=== PATIENT | female | born 1940 | race Caucasian/White ===

== ENCOUNTER 2016-12-24 15:04 | Emergency (ER) | payer MEDICARE ==
--- NOTE | 2016-12-24 17:15 | CT ---
EXAM: NONCONTRAST HEAD CT 12/24/16 COMPARISON: 07/26/12 HISTORY: Status post fall. Patient landed on face. Upper lip abrasion and right sided facial pain. TECHNIQUE: Noncontrast head CT is performed from skull base to skull vertex. FINDINGS: No parenchymal hemorrhage. No extra-axial hematoma. No midline shift. Basilar cisterns are patent. A ge appropriate brain volume. Cortical jacob-white matter differentiation is preserved. Ventricles and sulci are patent and symmetric. Calvarium is intact. Complete opacification of the visualized maxillary sinuses due to inspissated secretions versus a fu ngal infection. Adequate aeration of the remaining visualized paranasal sinuses and mastoid air cell s. IMPRESSION: 1. No intracranial posttraumatic sequela. 2. Bilateral maxillary sinus disease as above. POS: [facility]
--- NOTE | 2016-12-24 17:50 | CT ---
EXAM: NONCONTRAST MAXILLOFACIAL CT 12/24/16 HISTORY: Fall. Facial abrasions in the upper lip and right side of the face. Posttraumatic pain. COMPARISON: None. TECHNIQUE: The visualized brain parenchyma is unremarkable. there is adequate aeration of the frontal sinuses a nd ethmoid air cells, as well as the sphenoid sinuses. There is opacification of the left and right maxillary sinuses with some hyperdense material suggesting inspissated mucus versus fungal disease . There is mild hypertrophy of the osseous margins of the left and right maxillary sinus suggesting a chronic process. On the coronal reformatted images, there is opacification of bilateral osteomeata l complexes. Septum is intact and midline. The osseous margins of the orbits are maintained. There i s symmetric attenuation of the optic nerve and ocular rectus muscles. [place] right ocular lens and i mplanted left ocular lens appear to be appropriately positioned. The visualized aerodigestive tract is patent. No mucosal abnormality. Midline fatty raphae of the to ngue is preserved. There is no prevertebral soft tissue swelling. Maxilla and mandible are intact. Pterygoid plates are intact. No significant right facial or periorbital soft tissue swelling or erythema. IMPRESSION: 1. No posttraumatic sequela in the face. 2. Sinus disease as above. POS: [facility]
== END 2016-12-24 17:05 | disposition home or self-care (01) ==
LOC: SCSER 15:04
DX: S00.531A Contusion of lip, initial encounter (principal); E03.9 Hypothyroidism, unspecified; K21.9 Gastro-esophageal reflux disease without esophagitis; E78.5 Hyperlipidemia, unspecified; M19.90 Unspecified osteoarthritis, unspecified site; E11.9 Type 2 diabetes mellitus without complications; I10 Essential (primary) hypertension; Z85.038 Personal history of other malignant neoplasm of large intestine; Z79.4 Long term (current) use of insulin; Z79.899 Other long term (current) drug therapy; W01.0XXA Fall on same level from slipping, tripping and stumbling without subsequent striking against object, initial encounter
CPT/HCPCS: 70450; 70486

== ENCOUNTER 2017-01-19 09:14 | Observation (INO) | payer MEDICARE ==
[2017-01-19] MEDS ORDERED: Ondansetron HCl/PF 4 MG/2 ML Vial ONE ×2 (09:47→12:06)
[2017-01-19 10:01] LABS: #Eosinphils 0.1 thou/uL (0.0-0.7); #Lymphocytes 0.6 thou/uL (1.20-3.40); #Monocytes 0.5 thou/uL (0.11-0.59); #Neutrophils 7.9 thou/uL (1.40-6.50); %Basophils 0.2 % (0.0-1.0); %Eosinophils 1.2 % (0.0-10.0); %Lymphocytes 6.4 % (21.0-51.0); %Monocytes 5.8 % (0.0-10.0); Hematocrit 43.4 % (36.0-47.0); Mean Platelet Volume 7.9 fL (7.4-10.4); White Blood Cell (WBC) Count 9.1 thou/uL (4.8-10.8)
[2017-01-19 10:16] LABS: ALT (SGPT) 38 U/L (8-55); AST (SGOT) 41 U/L (5-34); Alkaline Phosphatase 104 U/L (40-150); Anion Gap 14 mmol/L (10-20); BUN (Urea Nitrogen) 23 mg/dL (9.8-20.1); Bilirubin, Total 0.8 mg/dL (0.2-1.2); Calc. Creatinine Clearance 0 mL/min (70-130); Calcium 9.4 mg/dL (7.8-10.44); Carbon Dioxide 20 mmol/L (23-31); Chloride 102 mmol/L (98-107); Estimated GFR-MDRD 53; Globulin 3.5 g/dL (2.4-3.5); Lipase 46 U/L (8-78); Protein, Total 7.5 g/dL (6.0-8.3)
[2017-01-19 10:36] LABS: Lactic Acid - Sepsis 1.9 mmol/L (0.5-2.2)
[2017-01-19 10:47] LABS: Troponin I Less than 0.010 ng/mL (< 0.028)
--- NOTE | 2017-01-19 11:17 | CT ---
CT ABDOMEN AND PELVIS WITH CONTRAST: Technique: Multiple axial tomograms were obtained through the abdomen and pelvis with IV enhancement . History: Nausea, vomiting. Comparison: 06-30-14 FINDINGS: Lung bases are clear. Liver, spleen, pancreas unremarkable. Post cholecystectomy change. Adrenal glands unremarkable. Kidneys show no evidence of hydronephrosis. Kidneys show equal function. No renal calculus or obstru ction. Urinary bladder unremarkable. Patient is post right colectomy. Small anterior abdominal wall hernia is unchanged in appearance fro m the prior exam of 06-30-14. This small herniation contains mesenteric fat. Small bowel loops are nor mal caliber with no evidence of obstruction. Visualized colon is otherwise unremarkable. No adenopat hy. Patient appears to be post hysterectomy. IMPRESSION: No evidence of acute process. POS: [facility]
[2017-01-19] MEDS ORDERED: Acetaminophen 500 MG TAB ONE (11:32)
[2017-01-19 11:44] LABS: Bilirubin Negative (Negative); Blood, Urine Trace (Negative); Glucose, Urine (Dipstick) 250 mg/dL (Negative); Ketone, Urine Trace mg/dL (Negative); Nitrite Negative (Negative); Protein, Urine (Dipstick) Negative (Neg-Trace); Urobilinogen 0.2 mg/dL (0.2-1.0)
[2017-01-19 11:45] LABS: Bacteria/HPF 1+ HPF (None Seen); Hyaline Casts/LPF 0-3 HYALINE CAST LPF (0-3 Hyaline); Squamous Epithelial 0-3 HPF (0-3)
[2017-01-19 11:57] LABS: RBC/HPF 0-3 HPF (0-3)
[2017-01-19] MEDS ORDERED: cefTRIAXone\\ROCEPHIN 1 GM VIAL ONE (12:59)
[2017-01-19] MEDS ORDERED: cefTRIAXone\\ROCEPHIN 1 GM, Admixture Fee 1 EACH in Sodium Chloride 0.9% 100 ML IVPB SCH (13:15)
[2017-01-19] MEDS ORDERED: ISOVUE-370 76%-LOCM 1 ML ONE (13:25)
[2017-01-19] MEDS ORDERED: Ondansetron ODT 4 MG TAB PO PRN (13:57)
[2017-01-19] MEDS ORDERED: Ondansetron HCl/PF 4 MG/2 ML Vial IVP PRN (13:57)
[2017-01-19] MEDS ORDERED: Acetaminophen 325 MG TAB PO PRN (13:58)
[2017-01-19] MEDS ORDERED: HYDROcodone/Acetaminophen 5/325 mg Tablet PO PRN ×2 (13:58)
[2017-01-19] MEDS ORDERED: Sodium Chloride 0.9% 1,000 ML IV SCH (14:00)
[2017-01-19] MEDS ORDERED: Dextrose 50% Abboject 50 ML SYRINGE SLOW IVP PRN (14:20)
[2017-01-19] MEDS ORDERED: Dextrose 5% in Water 1,000 ML IV PRN (14:20)
[2017-01-19] MEDS ORDERED: HumaLOG 300 UNITS/3 ML VIAL SC PRN (14:20)
[2017-01-19 14:24] VITALS: BMI 31.1
[2017-01-19] MEDS: Sodium Chloride 0.9% 1,000 ML IV SCH (15:19)
[2017-01-19] MEDS: Ondansetron ODT 4 MG TAB PO PRN ×2 (16:04→23:41)
--- NOTE | 2017-01-19 16:13 | HP ---
REASON FOR ADMISSION: Intractable nausea, vomiting, abdominal pain. HISTORY OF PRESENTING ILLNESS: The patient gives history of feeling dizzy with loss of energy from yesterday. She also felt very nauseated and had loss of appetite from yesterday. She really did not want to throw up because she has a tendency to choke. She managed to keep it down until early this morning. Finally, this continued and she made it to emergency room. Here in the ER, she had a large amount of vomitus, no blood or mucus in it. The patient states she has had loose stools 2 times a day from last 3 days as well. The abdominal pain is in the suprapubic area. No radiation of this pain. The pain is 3-4/10 in intensity. She has gotten morphine and Bentyl in the ER which has given her some relief now. PAST MEDICAL AND SURGICAL HISTORY: History of diabetes mellitus type 2, hypertension, dyslipidemia, history of rheumatoid arthritis, hypothyroidism, GERD, history of TIA in 2012, colonoscopy with right hemicolectomy, cholecystectomy, and hysterectomy. CURRENT MEDICATIONS: The patient is on linagliptin with metformin 2.5/500 mg p.o. twice daily, Coreg 12.5 mg p.o. twice daily, folic acid 1 mg p.o. daily, simvastatin 20 mg p.o. daily, hydrochlorothiazide 12.5 mg p.o. daily, Levemir 50 units subcutaneous twice daily, methotrexate 20 mg weekly, levothyroxine 25 mcg p.o. daily, glipizide extended release 10 mg p.o. twice daily, and losartan 50 mg p.o. daily. ALLERGIES: Allergic to PENICILLIN. PERSONAL HISTORY: Does not abuse alcohol or drugs. No history of smoking. Lives with her . FAMILY HISTORY: Father had unknown cancer. Mother has had history of hypertension. REVIEW OF SYSTEMS: The following complete review of systems was negative, unless otherwise mentioned in the HPI or below: Constitutional: Weight loss or gain, ability to conduct usual activities. Skin: Rash, itching. Eyes: Double vision, pain. ENT/Mouth: Nose bleeding, neck stiffness, pain, tenderness. Cardiovascular: Palpitations, dyspnea on exertion, orthopnea. Respiratory: Shortness of breath, wheezing, cough, hemoptysis, fever or night sweats. Gastrointestinal: Poor appetite, abdominal pain, heartburn, nausea, vomiting, constipation, or diarrhea. Genitourinary: Urgency, frequency, dysuria, nocturia. Musculoskeletal: Pain, swelling. Neurologic/Psychiatric: Anxiety, depression. Allergy/Immunologic: Skin rash, bleeding tendency. PHYSICAL EXAMINATION: GENERAL: The patient is a 76-year-old female who is currently lethargic, but not in any acute distress. VITAL SIGNS: Blood pressure 142/82, pulse 110 per minute, respiratory rate 24 per minute, temperature 98.1 degrees Fahrenheit, and saturating 100% on room air. NECK: Supple, no elevated JVD. EYES: Extraocular muscles intact. Pupils reacting to light. ORAL CAVITY: Mucous membranes are dry. No exudates or congestion. CARDIOVASCULAR SYSTEM: S1, S2 heard. Regular rhythm. RESPIRATORY SYSTEM: Air entry 1+ bilateral. No rales or rhonchi. ABDOMEN: Soft. There is mild tenderness in the suprapubic area. No rigidity or guarding. Bowel sounds are heard. EXTREMITIES: No peripheral edema or calf tenderness. VASCULAR SYSTEM: Peripheral pulses 1+ bilateral. No ischemic ulcerations or gangrene. CENTRAL NERVOUS SYSTEM: No gross focal deficits seen. Patient is alert, awake , and oriented x3. PSYCHIATRIC SYSTEM: The patient's mood is a bit depressed, otherwise, no hallucinations or delusions. LABORATORY DATA AND X-RAY FINDINGS: White count of 9, hemoglobin and hematocrit 14 and 43, platelet count of 172 with 86% neutrophils, MCV is 90. Sodium 131, serum bicarbonate 20, BUN 23, and creatinine 1.0. Serum glucose 324 , CK level is 22, albumin is 4.0. Her cardiac enzymes are within normal limits. Lipase is 46. UA shows small leukocyte esterase with 1+ bacteria and 4 -6 WBCs in the urine. Abdomen and pelvic CAT scan done shows no acute process. EKG, sinus tachycardia at 108 beats per minute. CLINICAL IMPRESSION AND PLAN: The patient will be under observation in medical floor for intractable nausea and vomiting with suprapubic pain, likely urinary tract infection. Blood and urine cultures will be obtained in the ER. The patient does not appear to be septic at present. She will be placed on ciprofloxacin 400 mg q.12 hourly along with normal saline at 50 mL per hour. The patient will be slowly weaned into solid food. If patient is tolerating solid food, she can be safely discharged in the morning. She needs a close followup with her primary care physician in 1 week upon discharge. We will also obtain orthostatic blood pressures and stool cultures as well including Clostridium difficile. We will continue most of her home medications as before including glipizide, Cozaar, Synthroid, Levemir, folic acid, Coreg, atorvastatin , and aspirin as before. [facility]
[2017-01-19] MEDS: HumaLOG 300 UNITS/3 ML VIAL SC PRN (17:13)
[2017-01-19] MEDS: Acetaminophen 325 MG TAB PO PRN ×2 (17:17→23:41)
[2017-01-19] MEDS ORDERED: Atorvastatin Calcium 10 MG TAB PO SCH (21:00)
[2017-01-19] MEDS: Carvedilol 6.25 MG TAB PO SCH (21:18)
[2017-01-19] MEDS: Famotidine 20 MG TAB PO SCH (21:18)
[2017-01-19] MEDS: Insulin Detemir 100 UNITS/ML 55 UNITS in Pre-Filled Syringe 1 EACH SC SCH (21:19)
[2017-01-19] MEDS ORDERED: Temazepam 15 MG CAP PO PRN (23:27)
[2017-01-20] MEDS ORDERED: Loperamide HCl 2 MG CAP PO SCH (01:30)
[2017-01-20 04:41] LABS: #Lymphocytes 0.6 thou/uL (1.20-3.40); #Monocytes 0.2 thou/uL (0.11-0.59); #Neutrophils 3.3 thou/uL (1.40-6.50); %Basophils 0.2 % (0.0-1.0); %Eosinophils 0.5 % (0.0-10.0); %Lymphocytes 14.6 % (21.0-51.0); %Monocytes 5.7 % (0.0-10.0); Hematocrit 36.7 % (36.0-47.0); Mean Platelet Volume 7.5 fL (7.4-10.4); Red Blood Cell (RBC) Count 4.11 mill/uL (4.20-5.40); White Blood Cell (WBC) Count 4.1 thou/uL (4.8-10.8)
[2017-01-20 05:03] LABS: Anion Gap 12 mmol/L (10-20); BUN (Urea Nitrogen) 18 mg/dL (9.8-20.1); Calc. Creatinine Clearance 65 mL/min (70-130); Calcium 8.2 mg/dL (7.8-10.44); Carbon Dioxide 16 mmol/L (23-31); Chloride 107 mmol/L (98-107); Estimated GFR-MDRD 62
[2017-01-20] MEDS ORDERED: Levothyroxine Sodium 25 MCG TAB PO SCH ×2 (06:00→09:00)
[2017-01-20] MEDS: HumaLOG 300 UNITS/3 ML VIAL SC PRN (06:04)
[2017-01-20] MEDS: Carvedilol 6.25 MG TAB PO SCH (08:50)
[2017-01-20] MEDS: Famotidine 20 MG TAB PO SCH (08:51)
[2017-01-20] MEDS: Insulin Detemir 100 UNITS/ML 55 UNITS in Pre-Filled Syringe 1 EACH SC SCH (08:52)
[2017-01-20] MEDS ORDERED: Folic Acid 1 MG TAB PO SCH (09:00)
[2017-01-20] MEDS ORDERED: Enoxaparin Sodium 40 MG/0.4 ML SYRINGE SC SCH (09:00)
[2017-01-20] MEDS ORDERED: Aspirin 81 mg Enteric Coated Tablet PO SCH (09:00)
[2017-01-20] MEDS ORDERED: Non-Formulary Item 1 EACH (Losartan Potassium [Cozaar] 50 MG) PO SCH (09:00)
[2017-01-20] MEDS ORDERED: Losartan Potassium 25 MG TAB PO SCH (09:00)
--- NOTE | 2017-01-20 11:05 | PDOC.PN ---
- Subjective Encounter Start Date: 01/20/17 Encounter Start Time: 11:04 - Objective Resuscitation Status: Resuscitation Status FULL:Full Resuscitation MAR Reviewed: Yes Vital Signs & Weight: Vital Signs (12 hours) Temp Pulse Resp BP BP BP BP 01/20/17 08:50 126/60 01/20/17 08:00 99.3 F 88 20 01/20/17 07:50 99.3 F 88 20 120/55 L 122/57 L 01/20/17 03:50 99 F 85 18 159/69 H 01/19/17 23:17 98.1 F 95 18 138/64 BP Pulse Ox 01/20/17 08:50 01/20/17 08:00 01/20/17 07:50 126/60 95 01/20/17 03:50 01/19/17 23:17 96 Weight Weight 170 lb 1 oz I&O: 01/19/17 01/20/17 01/21/17 06:59 06:59 06:59 Intake Total 1850 Output Total 600 Balance 1250 Result Diagrams: 01/20/17 04:25 01/20/17 04:25 Additional Labs: Accuchecks 01/20/17 01/19/17 01/19/17 06:04 20:59 16:36 POC Glucose 260 H 227 H 353 H Phys Exam - Physical Examination HEENT: PERRLA Respiratory: no wheezing, no rales, no rhonchi, clear to auscultation bilateral Cardiovascular: RRR, no significant murmur Gastrointestinal: soft, positive bowel sounds Musculoskeletal: no edema Dx/Plan (1) Gastroenteritis, infectious, presumed Code(s): A09 - INFECTIOUS GASTROENTERITIS AND COLITIS, UNSPECIFIED Status: Acute (2) UTI (urinary tract infection) Status: Acute (3) Diabetes mellitus type 2 in obese Code(s): E11.69 - TYPE 2 DIABETES MELLITUS WITH OTHER SPECIFIED COMPLICATION; E66.9 - OBESITY, UNSPECIFIED Status: Acute (4) Hypertension Code(s): I10 - ESSENTIAL (PRIMARY) HYPERTENSION Status: Acute - Plan * Gastroenteritis- likely viral- resolving * UTI- improving with Cipro, and patient is PCN allergic- will discharge home on Cipro. Patient is to follow-up with Dr. Nunes in 1 week for the urine culture results. * DM- blood glucose is stable * HTN- blood pressure is stable.
[2017-01-20 11:17] VITALS: TEMP 99
[2017-01-20] MEDS: Sodium Chloride 0.9% 1,000 ML IV SCH (11:38)
--- NOTE | 2017-01-20 13:32 | DIS ---
DATE OF ADMISSION: 01/19/2017 DATE OF DISCHARGE: 01/20/2017 PRIMARY CARE PHYSICIAN: Dr. Nunes DISCHARGE DISPOSITION: Home. PRIMARY DISCHARGE DIAGNOSES: 1. Gastroenteritis, presumed infectious. 2. Urinary tract infection due to Escherichia coli. 3. Diabetes mellitus, type 2. 4. Hypertension. 5. Dyslipidemia. 6. Rheumatoid arthritis. 7. Gastroesophageal reflux disease. DISCHARGE MEDICATIONS: Include ciprofloxacin 250 mg 1 p.o. twice a day for 5 days, carvedilol 6.25 mg twice daily, aspirin 81 mg daily, folic acid 1 mg daily, hydrochlorothiazide 12.5 mg daily, Levem ir 55 units twice a day, levothyroxine 25 mcg daily, Jentadueto and that is linagliptin with metfor min combination and that is 2.5/500 one tablet twice daily, Cozaar 100 mg daily, methotrexate 15 mg once a week, omeprazole 40 mg daily, simvastatin 20 mg at bedtime and glipizide extended release 10 mg twice a day. PROCEDURES DONE DURING ADMISSION: The patient had a CT scan of the abdomen and pelvis showing no ev idence of any acute process. CODE STATUS: FULL CODE. ALLERGIES: PENICILLIN. HOSPITAL COURSE: Ms. Rosado is a pleasant 76-year-old female who presented to the emergency room wi th complaints of nausea, vomiting, diarrhea, and abdominal pain. This had been going on at least 3 days prior to admission. In the ER, she had a CT scan of the abdomen, which did not show any acute abnormalities and it was also discovered that she had a urinary tract infection. After being in the hospital overnight on IV fluids and IV Cipro, she improved dramatically and was at her baseline. I t is suspected that this is likely a viral gastroenteritis and she likely developed urinary tract in fection secondary to this. Her urine culture results are growing E. coli at 100,000 colony forming units; however, the sensitivity results are pending. Since she is improving with fluids and Cipro and afebrile, she will be discharged and can follow up with the sensitivities with Dr. Nunes in the outpatient setting in 1 week.
[2017-01-20 15:04] VITALS: BP 130/60
[2017-01-20] MEDS ORDERED: Cipro 250 MG TAB PO SCH (20:00)
== END 2017-01-20 15:43 | disposition home or self-care (01) ==
LOC: ERS 09:14 → 2SW 14:13
PROVIDERS: ADMIT Internal Medicine; ATTEND Internal Medicine
DX: K52.9 Noninfective gastroenteritis and colitis, unspecified (principal); N39.0 Urinary tract infection, site not specified; B96.20 Unspecified Escherichia coli [E. coli] as the cause of diseases classified elsewhere; I10 Essential (primary) hypertension; E78.5 Hyperlipidemia, unspecified; M06.9 Rheumatoid arthritis, unspecified; K21.9 Gastro-esophageal reflux disease without esophagitis; E03.9 Hypothyroidism, unspecified; E11.9 Type 2 diabetes mellitus without complications; Z79.4 Long term (current) use of insulin; Z79.82 Long term (current) use of aspirin; Z79.899 Other long term (current) drug therapy; Z88.0 Allergy status to penicillin; Z90.49 Acquired absence of other specified parts of digestive tract; Z90.710 Acquired absence of both cervix and uterus; Z86.73 Personal history of transient ischemic attack (TIA), and cerebral infarction without residual deficits; Z80.9 Family history of malignant neoplasm, unspecified; Z82.49 Family history of ischemic heart disease and other diseases of the circulatory system
CPT/HCPCS: 74177; 80048; 80053; 82550; 82553; 82962 ×2; 83605; 83690; 83880; 84484; 85025 ×2; 87015; 87040; 87045; 87046; 87077; 87086; 87186; 87324; 87449 ×2; 87899 ×2; 93005; 96361 ×3; 96367; 96372; 96374; 96375; 96376 ×2; 97139; 99285; G0378; 36415; 36416; 81003; 81015; 90471; 90732; A4216; G0009; J0696; J0744; J1650; J1815; J2405; J7050; Q0162

== ENCOUNTER 2017-02-11 00:51 | Emergency (ER) | payer MEDICARE | END 2017-02-11 01:15 | disposition home or self-care (01) | LOC: SCSER 00:51 | DX: L03.311 Cellulitis of abdominal wall (principal); E03.9 Hypothyroidism, unspecified; K21.9 Gastro-esophageal reflux disease without esophagitis; E78.5 Hyperlipidemia, unspecified; I10 Essential (primary) hypertension; Z79.4 Long term (current) use of insulin; Z79.899 Other long term (current) drug therapy | CPT/HCPCS: 99283 ==

== ENCOUNTER 2017-08-03 08:24 | Emergency (ER) | payer MEDICARE ==
[2017-08-03 09:00] LABS: #Eosinphils 0.1 thou/uL (0.0-0.7); #Lymphocytes 2.2 thou/uL (1.20-3.40); #Monocytes 0.7 thou/uL (0.11-0.59); #Neutrophils 6.6 thou/uL (1.40-6.50); %Basophils 0.2 % (0.0-1.0); %Eosinophils 1.2 % (0.0-10.0); %Lymphocytes 22.8 % (21.0-51.0); %Monocytes 7.2 % (0.0-10.0); %Neutrophils 68.5 % (42.0-75.0); Hemoglobin 12.1 g/dL (12.0-16.0); Mean Corpuscular HGB CONC 34.7 g/dL (32.0-36.0); Mean Corpuscular Hemoglobin 29.9 pg (27.0-31.0); Mean Corpuscular Volume 86.2 fl (81.0-99.0); Mean Platelet Volume 7.1 fL (7.4-10.4); Platelet Count 179 thou/uL (130-400); RBC Distribution Width 13.6 % (11.5-14.5); Red Blood Cell (RBC) Count 4.04 mill/uL (4.20-5.40); White Blood Cell (WBC) Count 9.6 thou/uL (4.8-10.8)
--- NOTE | 2017-08-03 09:15 | RAD ---
CHEST ONE VIEW: History: Chest pain. Comparison: 03-19-16 FINDINGS: Cardiac silhouette is magnified by projection. Pulmonary vasculature is slightly engorged with mild b ilateral perihilar infiltrates. Mediastinum is midline. No lobar consolidation or evidence of pneumot horax. monitor and storage bin tender leads overlie the chest. IMPRESSION: Pulmonary vascular congestion. POS: [facility]
[2017-08-03 09:26] LABS: ALT (SGPT) 24 U/L (8-55); AST (SGOT) 28 U/L (5-34); Albumin 3.5 g/dL (3.4-4.8); Alkaline Phosphatase 94 U/L (40-150); Anion Gap 12 mmol/L (10-20); BUN (Urea Nitrogen) 17 mg/dL (9.8-20.1); Bilirubin, Total 0.5 mg/dL (0.2-1.2); CK (CPK) 24 U/L (29-168); Calc. Creatinine Clearance 0 mL/min (70-130); Calcium 9.1 mg/dL (7.8-10.44); Carbon Dioxide 22 mmol/L (23-31); Chloride 99 mmol/L (98-107); Estimated GFR-MDRD 54; Globulin 3.1 g/dL (2.4-3.5); Glucose 432 mg/dL (83-110); Potassium 4.1 mmol/L (3.5-5.1); Protein, Total 6.6 g/dL (6.0-8.3); Sodium 129 mmol/L (136-145)
[2017-08-03 09:27] LABS: CKMB 0.6 ng/mL (0-6.6); Troponin I Less than 0.010 ng/mL (< 0.028)
[2017-08-03 13:46] LABS: Troponin I Less than 0.010 ng/mL (< 0.028)
== END 2017-08-03 14:42 | disposition home or self-care (01) ==
LOC: ERS 08:24
DX: R07.89 Other chest pain (principal); E03.9 Hypothyroidism, unspecified; K21.9 Gastro-esophageal reflux disease without esophagitis; E78.5 Hyperlipidemia, unspecified; E11.9 Type 2 diabetes mellitus without complications; I10 Essential (primary) hypertension; Z79.4 Long term (current) use of insulin; Z79.899 Other long term (current) drug therapy
CPT/HCPCS: 36415; 71045; 80053; 82550; 82553; 83880; 84484; 85025; 93005

== ENCOUNTER 2017-10-18 06:39 | Emergency (ER) | payer MEDICARE ==
--- NOTE | 2017-10-18 07:35 | CT ---
CT BRAIN WITHOUT CONTRAST: HISTORY: Trauma. COMPARISON: CT brain 12/24/16. FINDINGS: No acute hemorrhage or infarct. NO midline shift or mass effect. Mild atrophy. Left outer table frontal osteoma is similar to the comparison examination. The paranasal sinuses and mastoids are clear. Of note, the ethmoids are not evaluated on this examin ation. IMPRESSION: No acute intracranial abnormality. POS: [facility]
--- NOTE | 2017-10-18 07:45 | CT ---
CT CERVICAL SPINE WITHOUT CONTRAST: HISTORY: Trauma. COMPARISON: 2013. FINDINGS: The odontoid process is intact. The occipital condyles are intact. Skull base is intact. No acute displaced fracture or malalignment of the cervical spine. Chronic mild narrowing of the atlantodenta l interval with a new facet between the anterior arch of C1 and the clivus. There is fusion of the right-sided facets at C2-3 and early fusion of the left facets of C2-3. Chronic degenerative disk space height loss at C5-6 and C6-7. Mild vascular calcifications proximal internal carotid arteries. Lung apices are clear. Thyroid is unremarkable. IMPRESSION: No acute fracture or malalignment. POS: [facility]
[2017-10-18] MEDS ORDERED: Adacel (T-DAP) 0.5 ML VIAL ONE (08:16)
--- NOTE | 2017-10-18 08:26 | RAD ---
4 VIEW LEFT ELBOW: Date: 10/18/17 CLINICAL HISTORY: Post-traumatic pain. FINDINGS: There is mild elevation of anterior fat pad. The elbow joint maintains appropriate alignment. There i s mild osteoarthritis. There is a faint linear lucency of the radial head identified on frontal proje ction, not confirmed on additional views, which may relate to a Mach line. IMPRESSION: No displaced fracture. Possible Mach line overlying the medial aspect of the articular surface of the radial head. If there is clinical concern, recommend conservative management and a short-term follow -up in 7 days to exclude an occult injury. POS: [facility]
--- NOTE | 2017-10-18 08:35 | RAD ---
3 VIEWS LEFT SHOULDER: Date: 10/18/17 HISTORY: Trauma. Patient fell while getting in to truck. COMPARISON: 03/15/14. FINDINGS: There is osteoarthritis involving the left acromioclavicular joint. No acute fracture or dislocation is seen involving the left shoulder. Degenerative changes are noted in the spine. No other interval c hange. IMPRESSION: 1. Left acromioclavicular joint osteoarthritis. 2. No acute osseous abnormality left shoulder. POS: [facility]
== END 2017-10-18 08:34 | disposition home or self-care (01) ==
LOC: ERS 06:39
DX: S52.122A Displaced fracture of head of left radius, initial encounter for closed fracture (principal); K21.9 Gastro-esophageal reflux disease without esophagitis; E78.5 Hyperlipidemia, unspecified; E03.9 Hypothyroidism, unspecified; E11.9 Type 2 diabetes mellitus without complications; I10 Essential (primary) hypertension; M19.90 Unspecified osteoarthritis, unspecified site; W17.89XA Other fall from one level to another, initial encounter
CPT/HCPCS: 29105; 36415; 70450; 72125; 80053; 85025; 85652; 86140; 90471; 90715

== ENCOUNTER 2017-11-01 08:55 | Day surgery (SDC) | payer MEDICARE ==
[2017-11-01] MEDS ORDERED: Oxymetazoline HCl 0.05% ( 15 ML ) ONE (09:29)
[2017-11-01 09:37] LABS: Hemoglobin 12.7 g/dL (12.0-16.0)
[2017-11-01 09:56] LABS: Anion Gap 14 mmol/L (10-20); BUN (Urea Nitrogen) 19 mg/dL (9.8-20.1); Calc. Creatinine Clearance 0 mL/min (70-130); Calcium 9.6 mg/dL (7.8-10.44); Carbon Dioxide 20 mmol/L (23-31); Chloride 100 mmol/L (98-107); Estimated GFR-MDRD 67; Glucose 245 mg/dL (83-110); Potassium 4.6 mmol/L (3.5-5.1); Sodium 129 mmol/L (136-145)
[2017-11-01] MEDS ORDERED: Lidocaine 1% w/Epinephrine 1:100K 30 ML VIAL ONE (10:29)
[2017-11-01] MEDS ORDERED: Fentanyl 100 MCG/2 ML VIAL ONE ×3 (10:38→12:27)
[2017-11-01] MEDS ORDERED: Glycopyrrolate 0.2 MG/ML 5 ML SYRINGE ONE (13:17)
[2017-11-01] MEDS ORDERED: PROPOFOL 200 MG/20 ML VIAL ONE (13:17)
[2017-11-01] MEDS ORDERED: Ondansetron HCl/PF 4 MG/2 ML Vial ONE (13:17)
[2017-11-01] MEDS ORDERED: Lidocaine 1% PF 5 ML VIAL ONE (13:17)
[2017-11-01] MEDS ORDERED: diphenhydrAMINE 50 MG/ML VIAL ONE (13:17)
[2017-11-01] MEDS ORDERED: HYDROcodone/Acetaminophen 5/325 mg Tablet ONE ×2 (13:43→13:44)
--- NOTE | 2017-11-02 11:14 | OP ---
DATE OF PROCEDURE: 11/01/2017 PREOPERATIVE DIAGNOSES: 1. Chronic rhinosinusitis. 2. Allergic fungal sinusitis. 3. Bilateral inferior turbinate hypertrophy. 4. Nasal obstruction. POSTOPERATIVE DIAGNOSES: 1. Chronic rhinosinusitis. 2. Allergic fungal sinusitis. 3. Bilateral inferior turbinate hypertrophy. 4. Nasal obstruction. PROCEDURES: 1. Bilateral endoscopic sinus surgery, total ethmoidectomies. 2. Bilateral endoscopic sinus surgery, maxillary antrostomies with removal of tissue. 3. Bilateral endoscopic sinus surgery, frontal sinusotomies. 4. Bilateral endoscopic sinus surgery, sphenoidotomies. 5. Bilateral inferior turbinate submucosal resection. SURGEON: Thomas Fitzgerald M.D. ESTIMATED BLOOD LOSS: 20 mL COMPLICATIONS: None. ANESTHESIA: GETA. PROCEDURE IN DETAIL: The patient was taken to the operating room and placed on the table. General e ndotracheal anesthesia was obtained by the Anesthesia staff. The tube was secured in the left lower lip. The patient was placed in the beach chair position. Following this, Afrin pledgets were placed in the nasal cavity as the patient was prepped and draped for standard surgical procedure. Followin g this, the Afrin pledgets were removed and the 0 degree endoscope was used to advance a 27-gauge nee dle and make injections of 1% lidocaine with 1:100,000 epinephrine into the inferior turbinates, midd le turbinates and lateral nasal wall. There was noted to be thick purulence and fungal debris visual ized in the middle meatus. Following this, the middle turbinates were gently medialized and the unci mendez process was visualized bilaterally. The ball-ended probe was then used to anteriorly fracture t he uncinate process and the straight microdebrider and upbiting Blakesley forceps were used to remove the uncinate process bilaterally. Following this, the natural maxillary ostia was identified and wa s noted to have fungal debris and purulence coming from it using a straight microdebrider and curved microdebrider. These maxillary sinus ostia were widened. Copious amounts of thick fungal debris was removed from the maxillary sinuses bilaterally. Following this, the ethmoidal bulla was identified and was punctured on its medial and inferior aspect with the microdebrider and was removed. Followin g this, the grand lamella was identified and was punctured into the posterior ethmoidal cells. Worki ng from posterior to anterior, the ethmoidal cells were opened in a mucosal-sparing technique. Follo wing this, the sphenoid sinuses were approached through the previous ethmoidectomies. The attachment of the superior turbinate was identified as it attached to the posterior nasal wall. Staying just m edial and inferior to this attachment, the sphenoidotomies were created with Acevedo tip suction and then were widened medially and inferiorly with the microdebrider. Following this, the 45 degree scop e and the curved microdebrider were then used to further open the frontal recess cells as well as ope n the frontal sinus ostia bilaterally. Following this, the nasal cavity was irrigated. MeroPacks we re placed within the middle meatus. Inferior turbinates were then punctured on the anterior inferior aspect with the submucosal microdebrider and submucosal resection was performed of the anterior infe rior portions of the inferior turbinates bilaterally. The patient tolerated the procedure well.
[2017-11-04 13:11] LABS: Fungus Stain Final report (.)
== END 2017-11-01 14:55 | disposition home or self-care (01) ==
LOC: SDC 08:55
PROVIDERS: ATTEND Otolaryngology Plastic Surgery within the Head & Neck
PROC: 09TV8ZZ Resection of Left Ethmoid Sinus, Via Natural or Artificial Opening Endoscopic (ICD-10-PCS; principal; 2017-11-01)
PROC: 09TU8ZZ Resection of Right Ethmoid Sinus, Via Natural or Artificial Opening Endoscopic (ICD-10-PCS; 2017-11-01)
DX: J32.0 Chronic maxillary sinusitis (principal); B49 Unspecified mycosis; J32.1 Chronic frontal sinusitis; J32.2 Chronic ethmoidal sinusitis; J32.3 Chronic sphenoidal sinusitis; J34.3 Hypertrophy of nasal turbinates; J30.9 Allergic rhinitis, unspecified; Z79.899 Other long term (current) drug therapy; Z88.0 Allergy status to penicillin
CPT/HCPCS: 36415; 80048; 85014; 85018; 87070; 87077; 87102; 87205; 87206; 93005; 93010; 96374; J0131; J1200; J2001; J2405; J2704; J3010

== ENCOUNTER 2017-11-04 06:07 | Emergency (ER) | payer MEDICARE ==
[2017-11-04 06:46] LABS: #Eosinphils 0.1 thou/uL (0.0-0.7); #Lymphocytes 1.7 thou/uL (1.20-3.40); #Monocytes 0.5 thou/uL (0.11-0.59); #Neutrophils 5.2 thou/uL (1.40-6.50); %Basophils 0.5 % (0.0-1.0); %Eosinophils 0.9 % (0.0-10.0); %Monocytes 6.7 % (0.0-10.0); %Neutrophils 69.9 % (42.0-75.0); Hemoglobin 11.3 g/dL (12.0-16.0); Mean Corpuscular HGB CONC 35.3 g/dL (32.0-36.0); Mean Corpuscular Hemoglobin 30.5 pg (27.0-31.0); Mean Corpuscular Volume 86.3 fL (78.0-98.0); Mean Platelet Volume 7.2 fL (7.4-10.4); Platelet Count 206 thou/uL (130-400); RBC Distribution Width 14.7 % (11.5-14.5); Red Blood Cell (RBC) Count 3.72 mill/uL (4.20-5.40); White Blood Cell (WBC) Count 7.5 thou/uL (4.8-10.8)
[2017-11-04] MEDS ORDERED: Ondansetron HCl/PF 4 MG/2 ML Vial ONE (06:51)
[2017-11-04 07:02] LABS: ALT (SGPT) 24 U/L (8-55); AST (SGOT) 38 U/L (5-34); Albumin 3.6 g/dL (3.4-4.8); Alkaline Phosphatase 85 U/L (40-150); Anion Gap 10 mmol/L (10-20); BUN (Urea Nitrogen) 13 mg/dL (9.8-20.1); Bilirubin, Total 0.5 mg/dL (0.2-1.2); Calc. Creatinine Clearance 0 mL/min (70-130); Calcium 8.9 mg/dL (7.8-10.44); Carbon Dioxide 24 mmol/L (23-31); Chloride 100 mmol/L (98-107); Estimated GFR-MDRD 56; Globulin 3.3 g/dL (2.4-3.5); Glucose 263 mg/dL (83-110); Magnesium 1.7 mg/dL (1.6-2.6); Potassium 4.5 mmol/L (3.5-5.1); Protein, Total 6.9 g/dL (6.0-8.3); Sodium 129 mmol/L (136-145)
[2017-11-04 07:07] LABS: CKMB 1.2 ng/mL (0-6.6); Troponin I Less than 0.010 ng/mL (< 0.028)
[2017-11-04] MEDS ORDERED: Promethazine HCl 12.5 MG SUPP ONE (07:56)
[2017-11-04] MEDS ORDERED: Promethazine HCl 25 MG/ML VIAL ONE (07:58)
[2017-11-04 08:22] LABS: Bacteria/HPF None Seen HPF (None Seen); Bilirubin Negative (Negative); Blood, Urine Trace (Negative); Clarity CLEAR (Clear); Glucose, Urine (Dipstick) Negative (Negative); Hyaline Casts/LPF 0-3 HYALINE CAST LPF (0-3 Hyaline); Leukocyte Negative (Negative); Nitrite Negative (Negative); Protein, Urine (Dipstick) Negative (Neg-Trace); RBC/HPF None Seen HPF (0-3); Specific Gravity, Urine 1.004 (1.002-1.036); Squamous Epithelial None Seen HPF (0-3); Urobilinogen 0.2 mg/dL (0.2-1.0); WBC/HPF None Seen HPF (0-3); pH, Urine 6.5 (5.0-9.0)
[2017-11-04] MEDS ORDERED: diphenhydrAMINE 25 MG CAP ONE (08:47)
--- NOTE | 2017-11-04 09:28 | RAD ---
PORTABLE CHEST: HISTORY: Abdominal pain. Cough and congestion. FINDINGS: Lungs are clear. Cardiomediastinum unremarkable. IMPRESSION: No acute process. POS: [facility]
== END 2017-11-04 09:35 | disposition home or self-care (01) ==
LOC: ERS 06:07
DX: E11.65 Type 2 diabetes mellitus with hyperglycemia (principal); E87.1 Hypo-osmolality and hyponatremia; R19.7 Diarrhea, unspecified; E03.9 Hypothyroidism, unspecified; K21.9 Gastro-esophageal reflux disease without esophagitis; E78.5 Hyperlipidemia, unspecified; I10 Essential (primary) hypertension; Z79.899 Other long term (current) drug therapy; Z79.84 Long term (current) use of oral hypoglycemic drugs
CPT/HCPCS: 36416; 71045; 80053; 81003; 81015; 82553; 83605; 83735; 83880; 84484; 85025; 93005; 96361; 96374; 96375; J2405; J2550

== ENCOUNTER 2017-11-23 16:48 | Emergency (ER) | payer MEDICARE ==
[2017-11-23 17:28] LABS: #Eosinphils 0.2 thou/uL (0.0-0.7); #Lymphocytes 2.1 thou/uL (1.20-3.40); #Monocytes 0.7 thou/uL (0.11-0.59); #Neutrophils 3.7 thou/uL (1.40-6.50); %Basophils 0.7 % (0.0-1.0); %Eosinophils 3.4 % (0.0-10.0); %Lymphocytes 30.6 % (21.0-51.0); %Monocytes 10.9 % (0.0-10.0); %Neutrophils 54.4 % (42.0-75.0); Hemoglobin 11.5 g/dL (12.0-16.0); Mean Corpuscular HGB CONC 34.6 g/dL (32.0-36.0); Mean Corpuscular Hemoglobin 30.6 pg (27.0-31.0); Mean Corpuscular Volume 88.3 fL (78.0-98.0); Mean Platelet Volume 6.9 fL (7.4-10.4); Platelet Count 261 thou/uL (130-400); RBC Distribution Width 14.4 % (11.5-14.5); Red Blood Cell (RBC) Count 3.76 mill/uL (4.20-5.40); White Blood Cell (WBC) Count 6.8 thou/uL (4.8-10.8)
[2017-11-23 17:53] LABS: ALT (SGPT) 10 U/L (8-55); AST (SGOT) 17 U/L (5-34); Albumin 3.6 g/dL (3.4-4.8); Alkaline Phosphatase 100 U/L (40-150); Anion Gap 12 mmol/L (10-20); BUN (Urea Nitrogen) 15 mg/dL (9.8-20.1); Bilirubin, Total 0.3 mg/dL (0.2-1.2); Calc. Creatinine Clearance 0 mL/min (70-130); Carbon Dioxide 18 mmol/L (23-31); Chloride 103 mmol/L (98-107); Estimated GFR-MDRD 65; Globulin 3.2 g/dL (2.4-3.5); Glucose 138 mg/dL (83-110); Potassium 4.3 mmol/L (3.5-5.1); Protein, Total 6.8 g/dL (6.0-8.3); Sodium 129 mmol/L (136-145)
[2017-11-23 19:56] LABS: Bilirubin Negative (Negative); Blood, Urine Negative (Negative); Clarity CLEAR (Clear); Glucose, Urine (Dipstick) Negative (Negative); Leukocyte Negative (Negative); Nitrite Negative (Negative); Protein, Urine (Dipstick) Negative (Neg-Trace); Specific Gravity, Urine 1.006 (1.002-1.036); Urobilinogen 0.2 mg/dL (0.2-1.0)
--- NOTE | 2017-11-25 19:55 | EKG ---
Test Reason : HYPOTENSION Blood Pressure : / mmHG Vent. Rate : 068 BPM Atrial Rate : 068 BPM P-R Int : 194 ms QRS Dur : 082 ms QT Int : 400 ms P-R-T Axes : 025 -08 051 degrees QTc Int : 425 ms Normal sinus rhythm Moderate voltage criteria for LVH, may be normal variant No STEMI Borderline ECG Confirmed by ZELALEM STANTON DO ([id number]), editorial cartoonist KLESY NICHOLSON ([id number]) on 11/25/2017 7:55:15 PM Referred By: Confirmed By:ZELALEM STANTON DO
== END 2017-11-23 20:40 | disposition home or self-care (01) ==
LOC: ERS 16:48
DX: I95.9 Hypotension, unspecified (principal); E03.9 Hypothyroidism, unspecified; E78.5 Hyperlipidemia, unspecified; E11.9 Type 2 diabetes mellitus without complications; I10 Essential (primary) hypertension; Z79.4 Long term (current) use of insulin; Z79.899 Other long term (current) drug therapy
CPT/HCPCS: 36415; 80053; 81003; 85025; 93005

== ENCOUNTER 2018-01-31 10:13 | Emergency (ER) | payer MEDICARE ==
[2018-01-31 11:14] LABS: #Eosinphils 0.1 thou/uL (0.0-0.7); #Lymphocytes 1.9 thou/uL (1.20-3.40); #Monocytes 0.7 thou/uL (0.11-0.59); %Basophils 0.8 % (0.0-1.0); %Monocytes 13.6 % (0.0-10.0); %Neutrophils 41.6 % (42.0-75.0); Hemoglobin 10.8 g/dL (12.0-16.0); Mean Corpuscular HGB CONC 31.8 g/dL (32.0-36.0); Mean Corpuscular Hemoglobin 28.4 pg (27.0-31.0); Mean Corpuscular Volume 89.4 fL (78.0-98.0); Mean Platelet Volume 6.5 fL (7.4-10.4); Platelet Count 335 thou/uL (130-400); RBC Distribution Width 15.2 % (11.5-14.5); Red Blood Cell (RBC) Count 3.79 mill/uL (4.20-5.40); White Blood Cell (WBC) Count 4.7 thou/uL (4.8-10.8)
[2018-01-31 11:30] LABS: ALT (SGPT) 10 U/L (8-55); AST (SGOT) 17 U/L (5-34); Albumin 3.5 g/dL (3.4-4.8); Alkaline Phosphatase 97 U/L (40-150); Anion Gap 13 mmol/L (10-20); BUN (Urea Nitrogen) 19 mg/dL (9.8-20.1); Bilirubin, Total 0.2 mg/dL (0.2-1.2); CK (CPK) 18 U/L (29-168); Calc. Creatinine Clearance 0 mL/min (70-130); Calcium 9.2 mg/dL (7.8-10.44); Carbon Dioxide 17 mmol/L (23-31); Chloride 110 mmol/L (98-107); Estimated GFR-MDRD 58; Globulin 3.1 g/dL (2.4-3.5); Glucose 209 mg/dL (83-110); Lipase 23 U/L (8-78); Potassium 4.2 mmol/L (3.5-5.1); Protein, Total 6.6 g/dL (6.0-8.3); Sodium 136 mmol/L (136-145)
[2018-01-31 11:34] LABS: CKMB 0.8 ng/mL (0-6.6); Troponin I Less than 0.010 ng/mL (< 0.028)
[2018-01-31 13:41] LABS: Bilirubin Negative (Negative); Blood, Urine Negative (Negative); Clarity CLEAR (Clear); Glucose, Urine (Dipstick) Negative (Negative); Leukocyte Trace (Negative); Nitrite Negative (Negative); Protein, Urine (Dipstick) 30 mg/dL (Neg-Trace); Specific Gravity, Urine 1.021 (1.002-1.036); Urobilinogen 0.2 mg/dL (0.2-1.0)
[2018-01-31 13:44] LABS: Bacteria/HPF None Seen HPF (None Seen); Hyaline Casts/LPF 4-6 HYALINE CAST LPF (0-3 Hyaline); Pathc Cast-AUWi Flag 0.72 (0-2.49); RBC/HPF 0-3 HPF (0-3); Squamous Epithelial 0-3 HPF (0-3); WBC/HPF 0-3 HPF (0-3)
== END 2018-01-31 15:57 | disposition home or self-care (01) ==
LOC: ERS 10:13
DX: E11.65 Type 2 diabetes mellitus with hyperglycemia (principal); E03.9 Hypothyroidism, unspecified; K21.9 Gastro-esophageal reflux disease without esophagitis; E78.5 Hyperlipidemia, unspecified; Z79.4 Long term (current) use of insulin; I10 Essential (primary) hypertension; Z79.899 Other long term (current) drug therapy
CPT/HCPCS: 36415; 36416; 80053; 81003; 81015; 82550; 82553; 83690; 84484; 85025; 93005

== ENCOUNTER 2018-05-19 17:41 | Emergency (ER) | payer MEDICARE ==
[2018-05-19 18:57] LABS: Bilirubin Negative (Negative); Blood, Urine Negative (Negative); Clarity CLEAR (Clear); Glucose, Urine (Dipstick) Negative (Negative); Leukocyte Moderate (Negative); Nitrite Negative (Negative); Protein, Urine (Dipstick) Negative (Neg-Trace); Specific Gravity, Urine 1.008 (1.002-1.036)
[2018-05-19 19:01] LABS: Bacteria/HPF None Seen HPF (None Seen); Hyaline Casts/LPF 0-3 HYALINE CAST LPF (0-3 Hyaline); Pathc Cast-AUWi Flag 0.14 (0-2.49); RBC/HPF 0-3 HPF (0-3)
[2018-05-19 19:13] LABS: #Eosinphils 0.2 thou/uL (0.0-0.7); #Lymphocytes 2.2 thou/uL (1.20-3.40); #Monocytes 0.5 thou/uL (0.11-0.59); #Neutrophils 3.3 thou/uL (1.40-6.50); %Basophils 0.5 % (0.0-1.0); %Eosinophils 3.4 % (0.0-10.0); %Monocytes 8.5 % (0.0-10.0); %Neutrophils 52.5 % (42.0-75.0); Hemoglobin 9.4 g/dL (12.0-16.0); Mean Corpuscular HGB CONC 31.2 g/dL (32.0-36.0); Mean Corpuscular Hemoglobin 25.2 pg (27.0-31.0); Mean Corpuscular Volume 80.6 fL (78.0-98.0); Mean Platelet Volume 8.5 fL (7.4-10.4); Platelet Count 278 thou/uL (130-400); RBC Distribution Width 14.5 % (11.5-14.5); Red Blood Cell (RBC) Count 3.72 mill/uL (4.20-5.40); White Blood Cell (WBC) Count 6.3 thou/uL (4.8-10.8)
[2018-05-19] MEDS ORDERED: Meclizine HCl 25 MG TAB ONE (19:16)
--- NOTE | 2018-05-19 19:37 | CT ---
CT BRAIN WITHOUT CONTRAST 05/19/18 HISTORY: Dizziness. COMPARISON: CT brain 10/18/17. FINDINGS: No acute hemorrhage or infarct. No midline shift or mass effect. Ventricular size and extra-axial CS F spaces are normal. Calvarium is intact. The maxillary sinuses have chronic osteitis and fluid filling to them. The masto ids are clear. IMPRESSION: No acute intracranial abnormality. POS: [facility]
[2018-05-19 19:39] LABS: ALT (SGPT) 8 U/L (8-55); AST (SGOT) 17 U/L (5-34); Albumin 3.3 g/dL (3.4-4.8); Alkaline Phosphatase 110 U/L (40-150); Anion Gap 15 mmol/L (10-20); BUN (Urea Nitrogen) 26 mg/dL (9.8-20.1); Bilirubin, Total Less than 0.2 mg/dL (0.2-1.2); CK (CPK) 48 U/L (29-168); Calc. Creatinine Clearance 0 mL/min (70-130); Carbon Dioxide 20 mmol/L (23-31); Chloride 106 mmol/L (98-107); Estimated GFR-MDRD 49; Globulin 3.5 g/dL (2.4-3.5); Glucose 149 mg/dL (83-110); Magnesium 1.8 mg/dL (1.6-2.6); Potassium 4.6 mmol/L (3.5-5.1); Protein, Total 6.8 g/dL (6.0-8.3); Sodium 136 mmol/L (136-145)
--- NOTE | 2018-05-19 19:39 | RAD ---
CHEST ONE VIEW: 05/19/18 HISTORY: Dizziness. COMPARISON: Radiograph 11/04/17. FINDINGS: The lungs are clear. No pneumothorax or effusion. The heart size is enlarged. No acute osseous abnorm ality. Mild degenerative change in both acromioclavicular joints. IMPRESSION: Mild cardiomegaly, otherwise unremarkable exam. POS: [facility]
--- NOTE | 2018-05-19 19:40 | RAD ---
RIGHT HIP TWO VIEW 05/19/18 HISTORY: Pain, dizziness, fall, trauma. COMPARISON: None. FINDINGS: Mild atherosclerotic plaque of the vessels. Moderate degenerative disease in right SI joint. No acute fracture or malalignment. Small acetabular osteophyte formation. IMPRESSION: No acute displaced fracture or malalignment. POS: [facility]
[2018-05-19] MEDS ORDERED: HYDROcodone/Acetaminophen 10/325 mg Tablet ONE (19:42)
[2018-05-19] MEDS ORDERED: Carvedilol 25 MG TAB PO SCH (20:00)
[2018-05-19] MEDS ORDERED: Hydrochlorothiazide 25 MG TAB PO SCH (20:00)
== END 2018-05-19 21:38 | disposition home or self-care (01) ==
LOC: ERS 18:09
DX: S80.11XA Contusion of right lower leg, initial encounter (principal); I10 Essential (primary) hypertension; E11.9 Type 2 diabetes mellitus without complications; M06.9 Rheumatoid arthritis, unspecified; E78.5 Hyperlipidemia, unspecified; Z79.899 Other long term (current) drug therapy; Z79.891 Long term (current) use of opiate analgesic; W19.XXXA Unspecified fall, initial encounter
CPT/HCPCS: 70450; 71045; 80053; 81003; 81015; 82550; 83735; 84443; 84484; 85025; 87077; 87086; 87186; 93005

== ENCOUNTER 2018-06-20 11:51 | Emergency (ER) | payer MEDICARE | END 2018-06-20 13:18 | disposition left against medical advice (07) | LOC: ERS 11:51 | DX: Z53.21 Procedure and treatment not carried out due to patient leaving prior to being seen by health care provider (principal) ==

== ENCOUNTER 2018-06-27 14:39 | Emergency (ER) | payer MEDICARE | END 2018-06-27 15:25 | disposition home or self-care (01) | LOC: SCSER 14:39 | DX: H00.012 Hordeolum externum right lower eyelid (principal); E11.9 Type 2 diabetes mellitus without complications; I10 Essential (primary) hypertension | CPT/HCPCS: 99283 ==

== ENCOUNTER 2019-03-12 20:48 | Inpatient (IN) | payer MEDICARE ==
--- NOTE | 2019-03-12 22:18 | RAD ---
AP CHEST: 03/12/19 HISTORY: Dizziness. COMPARISON: 05/19/18. Lungs appear clear. Heart and mediastinum appear normal. Vasculature normal. IMPRESSION: No acute process. POS: [facility]
[2019-03-12 22:39] LABS: #Lymphocytes 0.7 thou/uL (1.20-3.40); #Monocytes 0.7 thou/uL (0.11-0.59); #Neutrophils 8.1 thou/uL (1.40-6.50); %Basophils 0.3 % (0.0-1.0); %Eosinophils 0.2 % (0.0-10.0); %Lymphocytes 7.4 % (21.0-51.0); %Monocytes 7.1 % (0.0-10.0); %Neutrophils 85.1 % (42.0-75.0); Mean Corpuscular HGB CONC 34.3 g/dL (32.0-36.0); Mean Corpuscular Hemoglobin 30.6 pg (27.0-31.0); Mean Corpuscular Volume 89.3 fL (78.0-98.0); Mean Platelet Volume 6.5 fL (7.4-10.4); Platelet Count 222 thou/uL (130-400); RBC Distribution Width 13.4 % (11.5-14.5); Red Blood Cell (RBC) Count 3.93 mill/uL (4.20-5.40); White Blood Cell (WBC) Count 9.5 thou/uL (4.8-10.8)
[2019-03-12] MEDS ORDERED: HYDROcodone/Acetaminophen 10/325 mg Tablet ONE ×2 (22:52→23:38)
[2019-03-12 23:04] LABS: ALT (SGPT) 8 U/L (8-55); AST (SGOT) 20 U/L (5-34); Albumin 3.8 g/dL (3.4-4.8); Alkaline Phosphatase 83 U/L (40-110); Anion Gap 12 mmol/L (10-20); BUN (Urea Nitrogen) 10 mg/dL (9.8-20.1); Bilirubin, Total 0.5 mg/dL (0.2-1.2); Calc. Creatinine Clearance 0 mL/min (70-130); Carbon Dioxide 24 mmol/L (23-31); Chloride 97 mmol/L (98-107); Estimated GFR-MDRD 58; Globulin 3.2 g/dL (2.4-3.5); Glucose 145 mg/dL (83-110); Sodium 129 mmol/L (136-145)
[2019-03-12 23:25] LABS: CKMB 1.1 ng/mL (0-6.6)
[2019-03-12] MEDS ORDERED: Aspirin Chewable 81 MG TAB ONE (23:38)
[2019-03-12] MEDS ORDERED: Labetalol HCl 100 MG/20 ML VIAL ONE (23:38)
[2019-03-13] MEDS ORDERED: HumaLOG 300 UNITS/3 ML VIAL SC PRN (02:29)
[2019-03-13] MEDS ORDERED: Dextrose 5% in Water 1,000 ML IV PRN (02:29)
[2019-03-13] MEDS ORDERED: Dextrose 50% Abboject 50 ML SYRINGE SLOW IVP PRN (02:29)
[2019-03-13] MEDS ORDERED: Ondansetron ODT 4 MG TAB PO PRN (02:30)
[2019-03-13 02:43] LABS: Troponin I 0.248 ng/mL (< 0.028)
--- NOTE | 2019-03-13 02:53 | HP ---
TIME OF ASSESSMENT: 0200. CHIEF COMPLAINT: Elevated blood pressure. HISTORY OF PRESENT ILLNESS: Ms. Rosado is a 78-year-old woman, who presents to the emergency department due to concerns over significantly elevated blood pressure with a systolic in the 200s. The patient states the home health nurses came to check on her and noted that she continued with elevated blood pressure. The patient states she has not missed her usual medications. She also has other complaints including abdominal discomfort requiring a visit to the hospital last week. The patient states she was recommended an endoscopy, which is scheduled for the of this month. She denies having any abdominal pain at this present time. Denies experiencing any headaches or blurred vision. Denies having any chest pain. No shortness of breath. Does report having chills, but has not had any fevers. Denies any cough or hemoptysis. No dizziness. All other review of systems are negative. In the emergency department, she was initially noted to have an elevated blood pressure of 217/77. She was treated with labetalol 10 mg and her blood pressure came down to the 120s range. The patient has received 1 L of normal saline. She had an EKG done that showed normal sinus rhythm with a heart rate of 96. She had no ST changes or T-wave abnormalities. Laboratory studies were done demonstrating white count of 9.5, hemoglobin of 12, hematocrit of 35.1, and platelets of 222. Sodium is 129, potassium 4.0, BUN 10, creatinine 0.94, GFR 58. Renal function appears stable. LFTs unremarkable. Her troponin was elevated at 0.147. She had a BNP of 131.6. The patient was given 324 mg of aspirin in the emergency department. She had a chest x-ray done, which showed no acute process. Of note, the patient does report urinary frequency, but states she has had multiple urinalysis done and all have been negative for UTI. PAST MEDICAL HISTORY: 1. Arthritis. 2. Diabetes mellitus. 3. Hypertension. 4. Hyperlipidemia. PAST SURGICAL HISTORY: 1. Cholecystectomy. 2. Tubal ligation. SOCIAL HISTORY: The patient denies any alcohol consumption or tobacco use. Denies any illicit drug use. She states she is able to walk with the help of a walker. She lives at home with her family. ALLERGIES: PENICILLIN. CURRENT MEDICATIONS: PHYSICAL EXAMINATION: GENERAL: The patient appears well developed, well nourished, is in no acute distress. VITAL SIGNS: Temperature 99, pulse 82, respirations 20, blood pressure 148/64, O2 saturation 99% on room air. HEENT: Normocephalic and atraumatic. Pupils are equal, round, and reactive to light. Sclerae without icterus. Oropharynx is clear. NECK: Supple. No lymphadenopathy. LUNGS: Clear to auscultation bilaterally without wheezes, rales, or rhonchi. CARDIAC: Regular rate and rhythm without audible murmurs, rubs, or gallops. ABDOMEN: Soft, nontender, nondistended. Normoactive bowel sounds present. No guarding or rigidity. No renal angle tenderness. EXTREMITIES: Trace lower extremity edema. NEUROLOGIC: Alert and oriented x3. SKIN: Warm and dry. IMPRESSION AND PLAN: 1. Ms. Rosado is a 78-year-old woman, who presents due to hypertensive urgency. The patient with a blood pressure of 217/77 on arrival. Treated with labetalol with notable improvement. Blood pressure is currently in the 120s. The patient noted to have an elevated troponin of 0.147 and treated with aspirin. EKG was unremarkable. We will continue to trend troponins. The patient without any chest pain. 2. Urinary frequency. The patient with low-grade temp of 99 and complaining of chills in the emergency department. It is cold in the room, however with the low-grade temp, we will obtain urinalysis. We will add lactic acid to her labs. 3. Hypertension. Currently under control. We will continue to monitor blood pressure. Resume home medications once verified. 4. Diabetes mellitus. Resume home medications once verified. Monitor blood glucose. Insulin sliding scale to be initiated. 5. Hyperlipidemia. Resume home medications once verified. 6. Deep venous thrombosis prophylaxis with mechanical SCDs. 7. Gastrointestinal prophylaxis with famotidine. 8. Code status, full. Surrogate decision maker is her , Jose Luis Rosado. The patient's case discussed with attending who agrees with plan of care as described above. Job ID: [id number]
[2019-03-13 02:57] LABS: #Eosinphils 0.1 thou/uL (0.0-0.7); #Monocytes 0.8 thou/uL (0.11-0.59); %Basophils 0.2 % (0.0-1.0); %Lymphocytes 14.6 % (21.0-51.0); %Monocytes 11.4 % (0.0-10.0); %Neutrophils 71.8 % (42.0-75.0); Hemoglobin 10.1 g/dL (12.0-16.0); Mean Corpuscular HGB CONC 33.7 g/dL (32.0-36.0); Mean Corpuscular Hemoglobin 31.2 pg (27.0-31.0); Mean Corpuscular Volume 92.5 fL (78.0-98.0); Mean Platelet Volume 7.4 fL (7.4-10.4); Platelet Count 170 thou/uL (130-400); RBC Distribution Width 13.5 % (11.5-14.5); Red Blood Cell (RBC) Count 3.23 mill/uL (4.20-5.40)
[2019-03-13] MEDS: Sodium Chloride 0.9% 1,000 ML IV SCH ×2 (03:14→22:56)
[2019-03-13 03:48] LABS: Lactic Acid 1.8 mmol/L (0.5-2.2)
[2019-03-13 03:52] LABS: Anion Gap 11 mmol/L (10-20); BUN (Urea Nitrogen) 10 mg/dL (9.8-20.1); Calc. Creatinine Clearance 0 mL/min (70-130); Calcium 8.7 mg/dL (7.8-10.44); Carbon Dioxide 22 mmol/L (23-31); Chloride 99 mmol/L (98-107); Estimated GFR-MDRD 58; Glucose 148 mg/dL (83-110); Potassium 3.9 mmol/L (3.5-5.1); Sodium 128 mmol/L (136-145)
[2019-03-13 06:36] VITALS: BMI 32.3
[2019-03-13 06:43] LABS: Troponin I 0.165 ng/mL (< 0.028)
[2019-03-13] MEDS: Ondansetron PF 4 MG/2 ML Vial IVP PRN ×2 (08:57→20:51)
[2019-03-13] MEDS: Famotidine/PF 20 mg/2ml Vial SLOW IVP SCH ×2 (08:57→20:06)
[2019-03-13 09:49] LABS: Bilirubin Negative (Negative); Blood, Urine Trace (Negative); Clarity Clear (Clear); Glucose, Urine (Dipstick) Normal (Negative); Leukocyte 500 Leu/uL (Negative); Nitrite Negative (Negative); Protein, Urine (Dipstick) Negative (Neg-Trace); RBC/HPF 0-3 HPF (0-3); Squamous Epithelial 0-3 HPF (0-3); Urobilinogen Normal mg/dL (Less than 2); WBC/HPF 21-50 HPF (0-3)
[2019-03-13 09:51] LABS: Bacteria/HPF 1+ HPF (None Seen)
[2019-03-13 09:53] LABS: Urine Culture Reflex Yes Yes
[2019-03-13] MEDS ORDERED: HYDROcodone/Acetaminophen 10/325 mg Tablet PO PRN (11:06)
[2019-03-13] MEDS ORDERED: hydrALAZINE 20 MG/ML VIAL SLOW IVP PRN (11:07)
[2019-03-13] MEDS ORDERED: Acetaminophen 500 MG TAB PO PRN (11:07)
[2019-03-13] MEDS: HumaLOG 300 UNITS/3 ML VIAL SC PRN ×2 (11:33→18:30)
[2019-03-13] MEDS ORDERED: Sucralfate 1 GM/10 ML UDCUP PO SCH ×2 (15:00→16:15)
[2019-03-13] MEDS ORDERED: cefTRIAXone\\ROCEPHIN 1 GM in Sodium Chloride 0.9% 100 ML IVPB SCH (15:00)
--- NOTE | 2019-03-13 15:22 | PDOC.HOSPP ---
- Subjective Encounter Date: 03/13/19 Encounter Time: 15:10 Subjective: f/u HTN urgency, UTI and elevated troponins. Feels better overall except for urinary urgency. No current CP or dyspnea. No BM in 3-4 days. - Objective Vital Signs & Weight: Vital Signs (12 hours) Temp Pulse Pulse Pulse Resp BP BP 03/13/19 12:41 03/13/19 11:38 68 180/77 H 03/13/19 11:01 100.0 F H 99 28 H 03/13/19 08:19 78 81 177/74 H 03/13/19 07:07 97.8 F 68 16 03/13/19 04:45 99.2 F 69 20 BP BP Pulse Ox 03/13/19 12:41 161/79 H 03/13/19 11:38 03/13/19 11:01 96 03/13/19 08:19 195/79 H 03/13/19 07:07 145/65 H 97 03/13/19 04:45 120/58 L Weight Weight 176 lb 14.4 oz I&O: 03/12/19 03/13/19 03/14/19 06:59 06:59 06:59 Intake Total 350 Balance 350 Result Diagrams: 03/13/19 02:40 03/13/19 02:40 Additional Labs: Accuchecks 03/13/19 03/13/19 10:22 06:09 POC Glucose 216 H 175 H Radiology Reviewed by me: Yes (PCXR - no acute process) EKG Reviewed by me: Yes (Tele - SR) Hospitalist ROS - Medication Medications: Active Medications Generic Name Dose Route Start Last Admin Trade Name Freq PRN Reason Stop Dose Admin Famotidine 20 mg 03/13/19 09:00 03/13/19 08:57 Pepcid SLOW IVP 20 mg Q12HR ARCADIO Administration Hydralazine HCl 10 mg 03/13/19 11:07 03/13/19 11:38 Apresoline SLOW IVP 10 mg Q4H PRN Administration SBP>170 Sodium Chloride 1,000 mls @ 65 mls/hr 03/13/19 02:30 03/13/19 03:14 Normal Saline 0.9% IV 1,000 mls .[id number] ARCADIO Administration Insulin Human Lispro 0 units 03/13/19 02:29 03/13/19 11:33 Humalog SC 3 unit .MILD SLIDING SCALE PRN Administration Mild Correctional Scale Ondansetron HCl 4 mg 03/13/19 02:30 03/13/19 08:57 Zofran IVP 4 mg Q6H PRN Administration Nausea/Vomiting - Exam General Appearance: NAD, awake alert Eye: PERRL, anicteric sclera ENT: normocephalic atraumatic, no oropharyngeal lesions Neck: supple, symmetric, no JVD, no thyromegaly Heart: RRR, no murmur, no gallops, no rubs, normal peripheral pulses Respiratory: CTAB, no wheezes, no rales, no ronchi Gastrointestinal: soft, non-distended, normal bowel sounds, no palpable masses Gastrointestinal - other findings: mild TTP in suprapubic region Extremities: no cyanosis, no clubbing, no edema Skin: normal turgor, no lesions Neurological: cranial nerve grossly intact, no new deficit Musculoskeletal: normal tone, generalized weakness Psychiatric: normal affect, A&O x 3 Hosp A/P (1) Demand ischemia Code(s): I24.8 - OTHER FORMS OF ACUTE ISCHEMIC HEART DISEASE Status: Acute Plan: Suspected due to HTN urgency, consult Cardiology for any further recommendations for invasive testing (2) Hypertensive urgency Code(s): I16.0 - HYPERTENSIVE URGENCY Status: Acute Plan: Improved, resume home BP regimen and monitor clinically, PRN IV Hydralazine (3) UTI (urinary tract infection) Status: Acute Plan: Suspected, start Rocephin 1gm IV daily (4) Hyponatremia Code(s): E87.1 - HYPO-OSMOLALITY AND HYPONATREMIA Status: Acute Plan: Suspect due to HCTZ, hold HCTZ and monitor clinical response (5) Diabetes mellitus type 2 in obese Code(s): E11.69 - TYPE 2 DIABETES MELLITUS WITH OTHER SPECIFIED COMPLICATION; E66.9 - OBESITY, UNSPECIFIED Status: Chronic Plan: ISS, resume home Actos, ADA (6) CKD (chronic kidney disease), stage III Code(s): N18.3 - CHRONIC KIDNEY DISEASE, STAGE 3 (MODERATE) Status: Chronic - Plan plan discussed w/ family, continue antibiotics, PT/OT, criminal justice social worker, DVT proph w/SCDs Start Rocephin 1gm IV daily Consult Cardiology service due to elevated troponin Hold HCTZ Miralax 17gm po daily PT/OT evaluation Convert to inpt status AM lab: BMP, CBC
[2019-03-13] MEDS ORDERED: Aspirin 81 mg Enteric Coated Tablet PO SCH (15:45)
[2019-03-13] MEDS ORDERED: Polyethylene Glycol 3350 17 GM Packet PO SCH (16:15)
--- NOTE | 2019-03-13 17:33 | CON ---
DATE OF CONSULTATION: 03/13/2019 REASON FOR CONSULTATION: Indeterminate troponins. HISTORY OF PRESENT ILLNESS: Ms. Rosado is a very pleasant 78-year-old female, who comes to the hospital for high blood pressure. She was at home in her usual state of health. She was completely asymptomatic. She has a home health nurse who comes by about 3 or 4 times a week, checks her vitals, and noticed that her blood pressure was in the 200s range. Secondary to this, she was referred to the emergency room, where she was found to have a blood pressure of 200/100, given labetalol and immediately, her blood pressure is much better now in the 120s. It has been a little labile in the 160s; however, she denies any chest pain, tightness, or pressure; shortness of breath; lightheadedness; syncope; or presyncope. She is completely asymptomatic at home. During her evaluation, she had troponins drawn, which were indeterminate. So, Cardiology is being consulted for further evaluation of this. Currently, Ms. Rosado is not having any issues. She feels the same as she always does. PAST MEDICAL HISTORY: 1. Hypertension. 2. Osteoarthritis. 3. Type 2 diabetes. 4. Hyperlipidemia. PAST SURGICAL HISTORY: 1. Cholecystectomy. 2. Tubal ligation. SOCIAL HISTORY: No alcohol, tobacco, or drugs. She walks with a walker, but walks very minimal because of severe osteoarthritis. OUTPATIENT MEDICATIONS: 1. Levemir 10 units daily. 2. Crestor 10 mg at bedtime. 3. Actos 60 mg a day. 4. Mirtazapine 7.5 mg a day. 5. Losartan 50 mg a day. 6. Sucralfate. 7. Ranitidine. 8. [place] p.r.n. 9. Hydroxychloroquine 200 mg b.i.d. 10. Hydrochlorothiazide 12.5 mg a day. ALLERGIES: PENICILLIN. FAMILY HISTORY: Noncontributory. REVIEW OF SYSTEMS: Twelve-point review of systems was done and was all negative unless stated in the history of present illness. PHYSICAL EXAMINATION: VITAL SIGNS: Temperature 98.8, but the highest has been 100.0; pulse 93; respiratory rate 20; saturating 96% on room air; blood pressure 141/62. GENERAL: Awake, alert, and oriented x3, in no distress. HEENT: Normocephalic and atraumatic. NECK: Supple. LUNGS: Clear. CARDIOVASCULAR: S1 and S2. No S3 or S4. There is a very soft grade 2/6 systolic murmur at the right upper sternal border. ABDOMEN: Soft. Positive bowel sounds. EXTREMITIES: No edema. SKIN: Warm and dry. LABORATORY DATA: Laboratory work was reviewed. CBC with a white count of 9, hemoglobin of 12, hematocrit of 35, platelet count of 222. Hemoglobin is down to 10.1. Chemistries were reviewed. Sodium was 128. Glucose was 148, in the 200s otherwise. Troponin has been 0.14, 0.24, and 0.16. UA was unremarkable except for 500 leukocyte esterase, 21 to 50 white cells, 1+ bacteria, and culture is pending. Chest x-ray was unremarkable. ASSESSMENT AND PLAN: 1. Hypertensive urgency. Blood pressure was very high, but she was completely asymptomatic. Blood pressure is much better controlled. We will try to up-titrate some of her home medications for this. 2. Indeterminate troponins. Currently, completely asymptomatic. We will plan on getting an echocardiogram, and if this is unremarkable, then we will continue conservative therapy. We will plan on seeing her back in 1 month in the office for further evaluation with stress testing, but at this time, blood pressure control is the only recommendation. Thank you for letting us to participate in the care of your patient. Further recommendations per results of echocardiogram. Job ID: [id number]
[2019-03-13] MEDS: HYDROcodone/Acetaminophen 10/325 mg Tablet PO PRN (18:29)
[2019-03-13] MEDS: Sucralfate 1 GM/10 ML UDCUP PO SCH (20:16)
[2019-03-13] MEDS: Hydroxychloroquine Sulfate 200 MG TAB PO SCH (20:16)
[2019-03-13] MEDS ORDERED: Mirtazapine 15 MG TAB PO SCH (21:00)
[2019-03-13] MEDS ORDERED: Rosuvastatin 20 MG TAB PO SCH (21:00)
[2019-03-14 04:30] LABS: Band 6 % (5-11); Hemoglobin 10.3 g/dL (12.0-16.0); Lymphocytes 1 % (21-51); MDiff Complete? YES; Mean Corpuscular HGB CONC 34.3 g/dL (32.0-36.0); Mean Corpuscular Hemoglobin 30.7 pg (27.0-31.0); Mean Corpuscular Volume 89.6 fL (78.0-98.0); Mean Platelet Volume 7.2 fL (7.4-10.4); Monocytes 7 % (0-10); Neutrophil 85 % (42-75); Platelet Count 140 thou/uL (130-400); Platelet Morphology Comment Appears Adequate; RBC Distribution Width 13.6 % (11.5-14.5); Red Blood Cell (RBC) Count 3.36 mill/uL (4.20-5.40); White Blood Cell (WBC) Count 12.9 thou/uL (4.8-10.8)
[2019-03-14 04:40] LABS: Anion Gap 12 mmol/L (10-20); BUN (Urea Nitrogen) 12 mg/dL (9.8-20.1); Calc. Creatinine Clearance 68 mL/min (70-130); Carbon Dioxide 20 mmol/L (23-31); Chloride 102 mmol/L (98-107); Estimated GFR-MDRD 63; Glucose 162 mg/dL (83-110); Potassium 3.6 mmol/L (3.5-5.1); Sodium 130 mmol/L (136-145)
[2019-03-14] MEDS: HumaLOG 300 UNITS/3 ML VIAL SC PRN (06:40)
[2019-03-14] MEDS ORDERED: Prevnar 13-Val Conj/PF 0.5 ML SYRINGE IM ONE (08:15)
[2019-03-14] MEDS ORDERED: Polyethylene Glycol 3350 17 GM Packet PO SCH (09:00)
[2019-03-14] MEDS ORDERED: Pioglitazone HCl 15 MG TAB PO SCH (09:00)
[2019-03-14] MEDS ORDERED: Losartan 25 MG TAB PO SCH (09:00)
[2019-03-14] MEDS ORDERED: Aspirin 81 mg Enteric Coated Tablet PO SCH (09:00)
[2019-03-14] MEDS: Sucralfate 1 GM/10 ML UDCUP PO SCH (09:36)
[2019-03-14] MEDS: Hydroxychloroquine Sulfate 200 MG TAB PO SCH (09:38)
[2019-03-14] MEDS: Famotidine/PF 20 mg/2ml Vial SLOW IVP SCH (09:38)
[2019-03-14] MEDS: Sodium Chloride 0.9% 1,000 ML IV SCH (09:38)
[2019-03-14] MEDS: HYDROcodone/Acetaminophen 10/325 mg Tablet PO PRN (09:41)
[2019-03-14 11:55] VITALS: BP 135/90; TEMP 98.8
--- NOTE | 2019-03-14 13:05 | PDOC.CPN ---
- Subjective Date: 03/14/19 Time: 13:03 Interval history: Doing well. No chest pain, tightness, pressure. Now with what appears to be a UTI. - Review of Systems General: denies: fever/chills, weight/appetite/sleep changes, night sweats, fatigue Respiratory: denies: cough, congestion, shortness of breath, exercise intolerance Cardiovascular: denies: chest pain, palpitation, edema, paroxysmal nocturnal dyspnea, orthopnea Gastrointestinal: denies: nausea, vomiting, diarrhea, constipation, abd pain, GI bleeding Musculoskeletal: denies: pain, tenderness, stiffness, swelling, arthritis/ arthralgias Neurological: denies: numbness, syncope, seizure, weakness - Objective Allergies/Adverse Reactions: Allergies Allergy/AdvReac Type Severity Reaction Status Date / Time Penicillins Allergy Verified 03/13/19 05:48 Visit Medications: Current Medications Acetaminophen (Tylenol) 1,000 mg PO Q6H PRN PRN Reason: Headache/Fever or Pain Hydrocodone Bitart/Acetaminophen ([place] 10/325) 1 tab PO Q6H PRN PRN Reason: Pain Last Admin: 03/14/19 09:41 Dose: 1 tab Aspirin (Ecotrin) 81 mg PO DAILY [facility] Last Admin: 03/14/19 09:37 Dose: 81 mg Dextrose/Water (Dextrose 50%) 25 gm SLOW IVP PRN PRN PRN Reason: Hypoglycemia Famotidine (Pepcid) 20 mg SLOW IVP Q12HR [facility] Last Admin: 03/14/19 09:38 Dose: Not Given Glucagon (Glucagon) 1 mg IM PRN PRN PRN Reason: Hypoglycemia Hydralazine HCl (Apresoline) 10 mg SLOW IVP Q4H PRN PRN Reason: SBP>170 Last Admin: 03/13/19 11:38 Dose: 10 mg Hydroxychloroquine Sulfate (Plaquenil) 200 mg PO BID [facility] Last Admin: 03/14/19 09:38 Dose: Not Given Dextrose/Water (D5w) 1,000 mls @ 0 mls/hr IV .Q0M PRN PRN Reason: Hypoglycemia Sodium Chloride (Normal Saline 0.9%) 1,000 mls @ 65 mls/hr IV .[id number] [facility] Last Admin: 03/14/19 09:38 Dose: Not Given Ceftriaxone Sodium 1 gm/ (Sodium Chloride) 100 mls @ 200 mls/hr IVPB 1500 [facility] Last Admin: 03/13/19 15:59 Dose: 100 mls Insulin Human Lispro (Humalog) 0 units SC .MILD SLIDING SCALE PRN PRN Reason: Mild Correctional Scale Last Admin: 03/14/19 06:40 Dose: 2 unit Insulin Human Lispro (Humalog) 0 units SC .BEDTIME SLIDING SC PRN PRN Reason: Bedtime Correctional Scale Losartan Potassium (Cozaar) 50 mg PO DAILY [facility] Last Admin: 03/14/19 09:36 Dose: 50 mg Mirtazapine (Remeron) 7.5 mg PO [facility] Last Admin: 03/13/19 20:16 Dose: 7.5 mg Ondansetron HCl (Zofran Odt) 4 mg PO Q6H PRN PRN Reason: Nausea/Vomiting Ondansetron HCl (Zofran) 4 mg IVP Q6H PRN PRN Reason: Nausea/Vomiting Last Admin: 03/13/19 20:51 Dose: 4 mg Pioglitazone HCl (Actos) 15 mg PO DAILY [facility] Last Admin: 03/14/19 09:37 Dose: 15 mg Polyethylene Glycol (Miralax) 17 gm PO DAILY [facility] Last Admin: 03/14/19 09:38 Dose: Not Given Rosuvastatin Calcium (Crestor) 20 mg PO [facility] Last Admin: 03/13/19 20:08 Dose: 20 mg Sodium Chloride (Flush - Normal Saline) 10 ml IVF Q12HR PRN PRN Reason: Saline Flush Sodium Chloride (Flush - Normal Saline) 10 ml IVF PRN PRN PRN Reason: Saline Flush Sucralfate (Carafate) 1 gm PO TID [facility] Last Admin: 03/14/19 09:36 Dose: 1 gm Vital Signs & Weight: Vital Signs Temp Pulse Pulse Pulse Resp BP BP 03/14/19 11:54 98.8 F 73 16 03/14/19 09:30 82 88 172/73 H 185/76 H 03/14/19 08:00 99 F 75 17 03/14/19 04:45 98.6 F 88 18 BP Pulse Ox 03/14/19 11:54 135/90 100 03/14/19 09:30 03/14/19 08:00 156/69 H 97 03/14/19 04:45 130/59 L 96 Weight 176 lb 14.4 oz - Physical Exam General: alert & oriented x3 HEENT: mucus membranes moist Neck: supple neck Cardiac: regular rate and rhythm Lungs: clear to auscultation Neuro: grossly intact Abdomen: active bowel sounds Extremities: no edema Skin: clear Musculoskeletal: no pain - Labs Result Diagrams: 03/14/19 04:01 03/14/19 04:01 Troponin/CKMB CK-MB (CK-2) 1.1 ng/mL (0-6.6) 03/12/19 22:31 Troponin I 0.165 ng/mL (< 0.028) H 03/13/19 05:50 - Telemetry Sinus rhythms and dysrhythmias: sinus rhythm - Assessment/Plan Assessment/Plan: 1. Type 2 demand ischemia 2. UTI 3. HTN emergency PLAN; - She has inferior regional wall motion abnormality. Will start ASA and statin. Will add low dose BB. - Treat UTI - Will re evaluate as outpatient and will plan on [facility] in 1 month. She remains asymptomatic.
[2019-03-14] MEDS ORDERED: Carvedilol 3.125 MG TAB PO SCH (17:00)
--- NOTE | 2019-03-15 04:04 | DIS ---
DATE OF ADMISSION: 03/13/2019 DATE OF DISCHARGE: 03/14/2019 DISCHARGE DIAGNOSES: 1. Demand ischemia suspected secondary to #2. 2. Hypertensive urgency, resolved. 3. Urinary tract infection with gram-negative rods. 4. Hyponatremia secondary to hydrochlorothiazide. 5. Diabetes mellitus type 2. 6. Chronic kidney disease, stage 3, stable. CONSULTATIONS: Dr. Thompson with Cardiology Service. PERTINENT LABORATORY AND X-RAY FINDINGS: Sodium ranged between 128 to 130. Creatinine ranged between 0.87 to 0.94. Estimated GFR ranged between 58 to 63. Troponin I ranged between 0.147 to 0.248. BNP 132. CBC showed a hemoglobin ranged between 10.3 to 12.0. Urine culture dated 03/13/2019, greater than 100,000 colonies of gram-negative [place] with final identification pending. Portable chest x-ray dated 03/12/2019, showed no acute cardiopulmonary process. 2D transthoracic echocardiogram dated 03/14/2019 showed ejection fraction 50% to 55%. Grade 1-3 diastolic dysfunction. Inferior and inferoseptal hypokinesis. HOSPITAL COURSE: The patient was initially admitted after presenting with hypertensive urgency, treated with IV labetalol. The patient's blood pressure did improve and serial cardiac biomarkers were indeterminate. The patient was essentially asymptomatic during the presentation; however, due to the indeterminate troponin elevation, cardiology consultation was obtained. 2D transthoracic echocardiogram was taken showing a preserved ejection fraction. However, inferior and inferoseptal wall hypokinesis was noted. Current recommendations are for outpatient cardiac catheterization after completion of antibiotic coverage for an active urinary tract infection. The patient was noted with urinary frequency with urine culture showing greater than 100,000 colonies of gram-negative rods. The patient was initially treated with Rocephin and will transition to Levaquin 500 mg daily to complete antibiotic coverage. Overall, the patient remained clinically stable during the hospital course. I have examined the patient at the time of discharge and discussed followup instructions. The patient verbalized understanding and agreement, ready for discharge on 03/14/2019. DISCHARGE MEDICATIONS: 1. [place] 10/325 mg one tablet p.o. q.6 hours p.r.n. pain. 2. Plaquenil 200 mg p.o. b.i.d. 3. Levemir 10 units subcutaneously daily. 4. Cozaar 50 mg p.o. daily. 5. Mirtazapine 7.5 mg p.o. daily. 6. Actos 15 mg p.o. daily. 7. Ranitidine 150 mg p.o. b.i.d. 8. Crestor 20 mg p.o. at bedtime. 9. Carafate oral suspension 10 mL p.o. t.i.d. 10. Enteric-coated aspirin 81 mg p.o. daily. 11. Levaquin 500 mg p.o. daily x5 days. FOLLOWUP: The patient may follow up with her primary care provider at [facility]. The patient will follow up with Dr. Thompson with [facility] Cardiology Service within 4 weeks of discharge. CONDITION ON DISCHARGE: Stable. ACTIVITY: Ad-chauncey. DIET: Heart healthy and ADA. CODE STATUS: Full. DISPOSITION: To home, 03/14/2019. TIME SPENT: Total time preparing and coordinating discharge 34 minutes. Job ID: [id number]
--- NOTE | 2019-03-15 05:51 | PQF ---
[employer] JEAN CLAUDE EtienneOLGA DO [id number] [address] [place] [address] [id number] CLINICAL DOCUMENTATION CLARIFICATION FORM: POST DISCHARGE Addendum to original discharge summary date: ____ Late entry note date: __ DATE: 03/15/2019 ATTN:TOM MAHER Please exercise your independent, professional judgment in responding to the clarification form. Clinical indicators are provided on the bottom of this form for your review Please check appropriate box(s): AMI TYPE: [ ] Acute Coronary Syndrome (ACS) without Acute FL meaning Unstable Angina [ ] NSTEMI (FL type I) [ ] NSTEMI due to Demand Ischemia (AMI Type II) [ ] Demand Ischemia without FL [ ] STEMI (please also specify site and arterysee below) If STEMI, SITE:[ ] Anterior [ ] Apical [ ] Lateral [ ] Inferior [ ] Posterior [ ] Q Wave [ ] Septal [ ] Unable to Determine SPECIFIC ARTERY (Based on site) [ ] Left Main Coronary[ ] Diagonal [ ] Left Anterior Descending[ ] Oblique Marginal [ ] Right Coronary Artery[ ] Unable to Determine [ ] Left Circumflex ONSET OF INFARCTION: [ ] Onset Less than 4 weeks of admission [ ] Onset Greater than 4 weeks of admission [ ] Unable to determine DUE TO (if applicable): [ ] Stent occlusion [ ] In-Stent stenosis [ ] Occlusion of coronary bypass graft [ ] Complication of PCI [ ] Underlying CAD [ ] Other [ ] Other diagnosis [ ] Unable to determine In addition, please specify: Present on Admission (POA): [ ] Yes [ ] No [ ] Unable to determine CLINICAL INDICATORS - SIGNS / SYMPTOMS / LABS Elevated Troponin 0.147 on 03/12 and 0.165 on 03/13 - Documented in Laboratory NSTEMI - Documented in Admit order Patient without any chest pain - Documented in H&P on 03/13 by Kerri Hsieh Demand Ischemia - Documented in Hospital PNs on 03/13 by Agustin bach DO Demand ischemia suspected to HTN urgency - Documented in DS on 03/14 by Agustin bach DO RISKS: Hypertension Urgency UTI CKD 3 TREATMENTS: Cardiology consult Echocardiogram EKG Treated with aspirin - Documented in H&P on 03/13 by Kerri Hsieh (This form is maintained as a part of the permanent medical record) 2014 [employer], [employer]. All Rights Reserved [email or web address] [not provided] [email or web address]
== END 2019-03-14 13:20 | disposition home or self-care (01) | DRG 689 ==
LOC: ERS 20:48 → OBSVTOIN 03-13 00:36 → ERHOLD 03-13 00:36 → 2SE 03-13 05:36
PROVIDERS: ADMIT Internal Medicine; ATTEND Internal Medicine
DX: N39.0 Urinary tract infection, site not specified (principal); I21.4 Non-ST elevation (NSTEMI) myocardial infarction; I24.8 Other forms of acute ischemic heart disease; E87.1 Hypo-osmolality and hyponatremia; I16.0 Hypertensive urgency; M19.91 Primary osteoarthritis, unspecified site; E78.5 Hyperlipidemia, unspecified; E11.22 Type 2 diabetes mellitus with diabetic chronic kidney disease; I12.9 Hypertensive chronic kidney disease with stage 1 through stage 4 chronic kidney disease, or unspecified chronic kidney disease; N18.3 Chronic kidney disease, stage 3 (moderate); Z90.49 Acquired absence of other specified parts of digestive tract; Z98.51 Tubal ligation status; Z88.0 Allergy status to penicillin
CPT/HCPCS: 36415; 36416; 71045; 80048; 80053; 81001; 82553; 83605; 83880; 84484; 85007; 85025; 85027; 87077; 87086; 87186; 93005; 93306; J0360; J0696; J2405; J3490; S0028

== ENCOUNTER 2019-09-02 09:48 | Emergency (ER) | payer MEDICARE, OTHER ==
[2019-09-02 11:04] LABS: #Eosinphils 0.1 thou/uL (0.0-0.7); #Lymphocytes 0.6 thou/uL (1.20-3.40); #Monocytes 0.5 thou/uL (0.11-0.59); #Neutrophils 2.2 thou/uL (1.40-6.50); %Basophils 0.9 % (0.0-1.0); %Eosinophils 1.8 % (0.0-10.0); %Lymphocytes 17.9 % (21.0-51.0); %Monocytes 13.4 % (0.0-10.0); Hemoglobin 12.7 g/dL (12.0-16.0); Mean Corpuscular HGB CONC 34.7 g/dL (32.0-36.0); Mean Corpuscular Hemoglobin 30.6 pg (27.0-31.0); Mean Corpuscular Volume 88.1 fL (78.0-98.0); Mean Platelet Volume 7.4 fL (7.4-10.4); Platelet Count 128 thou/uL (130-400); RBC Distribution Width 13.3 % (11.5-14.5); Red Blood Cell (RBC) Count 4.13 mill/uL (4.20-5.40); White Blood Cell (WBC) Count 3.3 thou/uL (4.8-10.8)
[2019-09-02 11:44] LABS: ALT (SGPT) 9 U/L (8-55); AST (SGOT) 21 U/L (5-34); Alkaline Phosphatase 96 U/L (40-110); Anion Gap 13 mmol/L (10-20); BUN (Urea Nitrogen) 11 mg/dL (9.8-20.1); Bilirubin, Total 0.3 mg/dL (0.2-1.2); Calc. Creatinine Clearance 0 mL/min (70-130); Calcium 9.3 mg/dL (7.8-10.44); Carbon Dioxide 22 mmol/L (23-31); Chloride 94 mmol/L (98-107); Estimated GFR-MDRD 65; Globulin 3.2 g/dL (2.4-3.5); Glucose 153 mg/dL (83-110); Lipase 10 U/L (8-78); Potassium 3.9 mmol/L (3.5-5.1); Protein, Total 7.2 g/dL (6.0-8.3); Sodium 125 mmol/L (136-145)
[2019-09-02] MEDS ORDERED: Acetaminophen 500 MG TAB ONE (11:48)
[2019-09-02 11:50] LABS: Bacteria/HPF None Seen HPF (None Seen); Bilirubin Negative (Negative); Blood, Urine Trace (Negative); Clarity Clear (Clear); Glucose, Urine (Dipstick) Normal (Negative); Leukocyte Negative Leu/uL (Negative); Nitrite Negative (Negative); Protein, Urine (Dipstick) Negative (Neg-Trace); RBC/HPF 0-3 HPF (0-3); Squamous Epithelial 0-3 HPF (0-3); Urobilinogen Normal mg/dL (Less than 2); WBC/HPF 0-3 HPF (0-3)
--- NOTE | 2019-09-02 13:24 | CT ---
BRAIN CT WITHOUT IV CONTRAST: History: Headache, weakness. Comparison: 05-19-18 FINDINGS: Chronic appearing sinus mucosal changes including the ethmoid, maxillary, and right sphenoid sinus re gions without airfluid level. No focal mass or midline shift. No intra or extraaxial hemorrhage. Stab le hyperostosis from [place]. IMPRESSION: Stable atrophy and chronic white matter ischemic changes. Stable sinus mucosal disease. No mass, blee d, or other acute process. POS: RRE
[2019-09-03 14:00] LABS: SARS-CoV-2 MS2 Positive; SARS-CoV-2 N Gene Positive; SARS-CoV-2 S Gene Positive; SARS-CoV-2 orf1ab Positive
== END 2019-09-02 13:25 | disposition home or self-care (01) ==
LOC: ERS 09:48
DX: U07.1 COVID-19 (principal); R51 Headache; R11.0 Nausea; M19.90 Unspecified osteoarthritis, unspecified site; E11.9 Type 2 diabetes mellitus without complications; I10 Essential (primary) hypertension; E78.5 Hyperlipidemia, unspecified
CPT/HCPCS: 70450; 80053; 83690; 84484; 85025; 93005; 99284; U0003; 36415; 81003; 81015; 87635

== ENCOUNTER 2019-09-06 01:15 | Emergency (ER) | payer MEDICARE ==
[2019-09-06] MEDS ORDERED: Lorazepam 1 MG TAB ONE (02:29)
== END 2019-09-06 02:57 | disposition home or self-care (01) ==
LOC: ERS 01:15
DX: T46.5X1A Poisoning by other antihypertensive drugs, accidental (unintentional), initial encounter (principal); F41.9 Anxiety disorder, unspecified; E78.5 Hyperlipidemia, unspecified; M19.90 Unspecified osteoarthritis, unspecified site; E11.9 Type 2 diabetes mellitus without complications; I10 Essential (primary) hypertension; Z79.4 Long term (current) use of insulin; Z79.899 Other long term (current) drug therapy
CPT/HCPCS: 36416; 93005

== ENCOUNTER 2019-09-14 13:59 | Inpatient (IN) | payer MEDICARE, OTHER ==
--- NOTE | 2019-09-14 15:05 | RAD ---
EXAM: Single view of the chest HISTORY: Covid positive with altered mental status COMPARISON: 03/12/2019 FINDINGS: Single view of the chest shows a normal sized cardiomediastinal silhouette. Subtle scattere d peripheral airspace opacities are seen in both lungs, right greater than left. The bones are unremarkable. IMPRESSION: Bilateral multifocal infiltrates
[2019-09-14 15:14] LABS: #Monocytes 0.4 thou/uL (0.11-0.59); #Neutrophils 5.6 thou/uL (1.40-6.50); %Basophils 0.2 % (0.0-1.0); %Eosinophils 0.1 % (0.0-10.0); %Monocytes 5.2 % (0.0-10.0); %Neutrophils 80.6 % (42.0-75.0); Hemoglobin 12.9 g/dL (12.0-16.0); Mean Corpuscular HGB CONC 34.4 g/dL (32.0-36.0); Mean Corpuscular Hemoglobin 29.7 pg (27.0-31.0); Mean Corpuscular Volume 86.4 fL (78.0-98.0); Mean Platelet Volume 8.3 fL (7.4-10.4); Platelet Count 203 thou/uL (130-400); RBC Distribution Width 13.3 % (11.5-14.5); Red Blood Cell (RBC) Count 4.36 mill/uL (4.20-5.40)
[2019-09-14 15:28] LABS: Bilirubin Negative (Negative); Blood, Urine 1+ (Negative); Clarity Turbid (Clear); Glucose, Urine (Dipstick) Normal (Negative); Leukocyte Negative Leu/uL (Negative); Nitrite Negative (Negative); Protein, Urine (Dipstick) 100 mg/dL (Neg-Trace); RBC/HPF 0-3 HPF (0-3); Squamous Epithelial 0-3 HPF (0-3); Urobilinogen Normal mg/dL (Less than 2)
[2019-09-14 15:29] LABS: Bicarbonate (HCO3v) 20.6 mmol/L (22.0-28.0); CO2 Tension (PvCO2) 39.3 mmHg (40.0-50.0); Calcium, Ionized 1.01 mmol/L (See Comments:); Chloride 94 mmol/L (98-107); Hemoglobin - Calc 13.4 g/dL (12.0-16.0); Potassium 4.1 mmol/L (3.5-5.1); Sodium 123 mmol/L (138-145); T. Carbon Dioxide 21.8 mmol/L (22.0-28.0); vO2 Saturation-calc 54.8 % (60.0-85.0)
[2019-09-14 15:29] LABS: Bacteria/HPF 1+ HPF (None Seen)
[2019-09-14 15:34] LABS: ALT (SGPT) 17 U/L (8-55); AST (SGOT) 49 U/L (5-34); Albumin 3.7 g/dL (3.4-4.8); Alkaline Phosphatase 77 U/L (40-110); Anion Gap 16 mmol/L (10-20); BUN (Urea Nitrogen) 30 mg/dL (9.8-20.1); Bilirubin, Total 0.3 mg/dL (0.2-1.2); Calc. Creatinine Clearance 0 mL/min (70-130); Calcium 8.8 mg/dL (7.8-10.44); Carbon Dioxide 20 mmol/L (23-31); Chloride 93 mmol/L (98-107); Estimated GFR-MDRD 37; Globulin 3.8 g/dL (2.4-3.5); Glucose 230 mg/dL (83-110); Potassium 4.1 mmol/L (3.5-5.1); Protein, Total 7.5 g/dL (6.0-8.3); Sodium 125 mmol/L (136-145)
[2019-09-14 15:57] LABS: CKMB 1.4 ng/mL (0-6.6)
--- NOTE | 2019-09-14 16:44 | CT ---
CT BRAIN 09/14/19 PROVIDED CLINICAL HISTORY: Altered mental status. FINDINGS: Comparison 09/02/19. The ventricular system remains normal in size and morphology. There is no evidence for intracranial h emorrhage or mass effect. Paranasal sinus mucosal disease is redemonstrated, similar to prior. The ex tracranial soft tissues and osseous structures demonstrate no acute abnormality. IMPRESSION: No evidence for intracranial hemorrhage or mass effect. POS: TRACY
[2019-09-14] MEDS ORDERED: Acetaminophen 325 MG TAB PO PRN (18:38)
[2019-09-14] MEDS ORDERED: Ondansetron ODT 4 MG TAB PO PRN (18:38)
[2019-09-14] MEDS ORDERED: Ondansetron PF 4 MG/2 ML Vial IVP PRN (18:38)
--- NOTE | 2019-09-14 19:03 | PDOC.HHP ---
Hospitalist HPI - History of Present Illness cough and mild confusion History of Present Illness: the patient is confused and an unreliable historian. The H&P is based on the daughter's report and EMR. 79yo F w/ MHx of T2DM, HTN, and recently diagnosed covid-19 (09/04) presents for recurrent cough. Baseline of patient is oriented to place and responds to command but daughter not sure if oriented to time. Last time at baseline mental state was the day prior to presentation. Per the daughter, prior to the COVID diagnosis, the patient's predominant symptom was coughing, which has improved over the past week. On Monday, the patient was started on alprazolam for anxiety.Yesterday, cough resurfaced, and this morning, was less interactive with family, so was brought to the ED. On encounter laying comfortably in bed and complains of not being able to urinate since yesterday. Denies headache, change in vision, neck stiffness, chills, night sweats, dysphagia, dysarthria, chest pain, palpitations, shortness of breath, cough, dysuria, burning on urination, diarrhea, focal weakness, recent travel, sick contacts. ED Course: In the ED, found to be dehydrated, hyponatremic, bacteriuric and pyuric. Was started on fluids and was admitted to the floor for further management. Hospitalist ROS - Review of Systems All other systems reviewed; all pertinent +/- noted in HPI/Subj Hospitalist History - Past Medical History Source: old records (1. Arthritis. 2. Diabetes mellitus. 3. Hypertension. 4. Hyperlipidemia. PAST SURGICAL HISTORY: 1. Cholecystectomy. 2. Tubal ligation. SOCIAL HISTORY: The patient denies any alcohol consumption or tobacco use. Denies any illicit drug use. She states she is able to walk with the help of a walker. She lives at home with her family. ALLERGIES: PENICILLIN. CURRENT MEDICATIONS: 1. Levemir. 2. Crestor. 3. Actos. 4. Mirtazapine. 5. Losartan. 6. Sucralfate. 7. Ranitidine. 8. [place]. 9. Hydroxychloroquine. 10. Hydrochlorothiazide.) - Exam General Appearance: NAD, awake alert General - other findings: morbidly obese, in mild distress due to urinary retention Eye: PERRL, anicteric sclera ENT: normocephalic atraumatic, no oropharyngeal lesions, dry oral mucosa Neck: no JVD Heart: no murmur, no gallops, no rubs Heart - other findings: tachycardic Respiratory: CTAB, no wheezes, no rales, no ronchi, no tachypnea Respiratory - other findings: shallow breaths due to reduced respiratory effort Gastrointestinal: soft, non-tender, non-distended Gastrointestinal - other findings: palpable bladder Extremities: no edema Psychiatric: oriented to person, oriented to place. negative: oriented to time Psychiatric - other findings: pre daughter, might be baseline Hospitalist Results - Labs Result Diagrams: 09/14/19 15:00 09/14/19 18:51 Lab results: WBC 7.0 thou/uL (4.8-10.8) 09/14/19 15:00 Hgb 12.9 g/dL (12.0-16.0) 09/14/19 15:00 Hct 37.7 % (36.0-47.0) 09/14/19 15:00 MCV 86.4 fL (78.0-98.0) 09/14/19 15:00 Plt Count 203 thou/uL (130-400) 09/14/19 15:00 Neutrophils % 80.6 % (42.0-75.0) H 09/14/19 15:00 VBG pCO2 39.3 mmHg (40.0-50.0) L 09/14/19 15:15 VBG pO2 30.9 mmHg (35.0-45.0) L 09/14/19 15:15 Sodium 125 mmol/L (136-145) L 09/14/19 15:00 Potassium 4.1 mmol/L (3.5-5.1) 09/14/19 15:00 Chloride 93 mmol/L (98-107) L 09/14/19 15:00 Carbon Dioxide 20 mmol/L (23-31) L 09/14/19 15:00 BUN 30 mg/dL (9.8-20.1) H 09/14/19 15:00 Creatinine 1.39 mg/dL (0.6-1.1) H 09/14/19 15:00 Glucose 230 mg/dL (83-110) H 09/14/19 15:00 Calcium 8.8 mg/dL (7.8-10.44) 09/14/19 15:00 Total Bilirubin 0.3 mg/dL (0.2-1.2) 09/14/19 15:00 AST 49 U/L (5-34) H 09/14/19 15:00 ALT 17 U/L (8-55) 09/14/19 15:00 Alkaline Phosphatase 77 U/L (40-110) 09/14/19 15:00 CK-MB (CK-2) 1.4 ng/mL (0-6.6) 09/14/19 15:00 Troponin I 0.029 ng/mL (< 0.028) H 09/14/19 15:00 Serum Total Protein 7.5 g/dL (6.0-8.3) 09/14/19 15:00 Albumin 3.7 g/dL (3.4-4.8) 09/14/19 15:00 Urine Ketones Trace mg/dL (Negative) A 09/14/19 15:00 Urine Blood 1+ (Negative) A 09/14/19 15:00 Urine Nitrite Negative (Negative) 09/14/19 15:00 Ur Leukocyte Esterase Negative Elvi/uL (Negative) 09/14/19 15:00 Urine RBC 0-3 HPF (0-3) 09/14/19 15:00 Urine WBC 7-10 HPF (0-3) A 09/14/19 15:00 Ur Squamous Epith Cells 0-3 HPF (0-3) 09/14/19 15:00 Urine Bacteria 1+ HPF (None Seen) A 09/14/19 15:00 - EKG Interpretation EKG: sinus tachy, left axis deviation, LAFB, poor R-wave progression - Radiology Interpretation Chest x-ray Status: image reviewed by me Additional Comment: b/l opacities mostly bases Hospitalist H&P A/P - Problem (1) Pneumonia due to COVID-19 virus Code(s): U07.1 - COVID-19; J12.89 - OTHER VIRAL PNEUMONIA Status: Acute (2) Chronic hyponatremia Code(s): E87.1 - HYPO-OSMOLALITY AND HYPONATREMIA Status: Acute (3) Urinary retention Code(s): R33.9 - RETENTION OF URINE, UNSPECIFIED Status: Acute (4) Cardiomyopathy Code(s): I42.9 - CARDIOMYOPATHY, UNSPECIFIED Status: Acute (5) Hypertension Code(s): I10 - ESSENTIAL (PRIMARY) HYPERTENSION Status: Acute - Plan Plan: #covid pneumonia #CAP -per daughter, was diagnosed on 09/04 -reason for admission is resurfacing of cough along with possible confusion, though at baseline on presentation -currently HD stable on RA -no recent CXR to compare; CXR this admission b/l basal infiltrates -likely inactive at this point; obtain ddimer, ferritin, CRP -ceftriaxone, azithromycin for CAP -stop alprazolam as may precipitate confusion in elderly#HTN #chronic hyponatremia #prerenal madeline #UTI -likely due to dehydration and appropriate ADH response -NS IVF; rate of correction up to 6meq/24hr -ceftriaxone for UTI pending culture #urinary retention -450cc on straight cath -place marks -review polypharmacy -senna/doc to prevent constipation #T2DM poorly controlled -diabetic diet, sliding scale HTN -restart home medciations Dispo/ppx -contacted daughter Navya, who said she will discuss with rest of family code status -GI PPx: no Ix -DVT PPx: enoxeparin ELOS: 2 midnights
[2019-09-14 19:15] LABS: Sodium 127 mmol/L (136-145)
[2019-09-14 21:27] VITALS: BMI 29.7
[2019-09-14] MEDS ORDERED: Dextrose 50% Abboject 50 ML SYRINGE SLOW IVP PRN (21:38)
[2019-09-14] MEDS ORDERED: Dextrose 5% in Water 1,000 ML IV PRN (21:38)
[2019-09-14] MEDS: Senokot S 8.6-50 MG TAB PO SCH (21:59)
[2019-09-14] MEDS: Azithromycin 500 MG in Sodium Chloride 0.9% 250 ML 250 ML IVPB SCH (22:00)
[2019-09-14 22:29] LABS: Troponin I 0.029 ng/mL (< 0.028)
[2019-09-14] MEDS: cefTRIAXone\\ROCEPHIN 1 GM in Sodium Chloride 0.9% 100 ML IVPB SCH (23:20)
[2019-09-15] MEDS: HumaLOG 300 UNITS/3 ML VIAL SC PRN ×4 (06:01→20:33)
[2019-09-15 06:19] LABS: ALT (SGPT) 13 U/L (8-55); AST (SGOT) 45 U/L (5-34); Alkaline Phosphatase 64 U/L (40-110); Anion Gap 15 mmol/L (10-20); BUN (Urea Nitrogen) 17 mg/dL (9.8-20.1); Bilirubin, Total 0.2 mg/dL (0.2-1.2); Calc. Creatinine Clearance 68 mL/min (70-130); Calcium 8.1 mg/dL (7.8-10.44); Carbon Dioxide 16 mmol/L (23-31); Chloride 102 mmol/L (98-107); Estimated GFR-MDRD 71; Globulin 3.1 g/dL (2.4-3.5); Glucose 169 mg/dL (83-110); Potassium 3.7 mmol/L (3.5-5.1); Protein, Total 6.1 g/dL (6.0-8.3); Sodium 129 mmol/L (136-145)
[2019-09-15] MEDS: Senokot S 8.6-50 MG TAB PO SCH ×3 (08:28→20:23)
[2019-09-15] MEDS: Enoxaparin Sodium 30 MG/0.3 ML SYRINGE SC SCH (08:28)
[2019-09-15] MEDS ORDERED: Prevnar 13-Val Conj/PF 0.5 ML SYRINGE IM ONE (09:00)
[2019-09-15] MEDS ORDERED: Dexamethasone 4 mg/ml Vial SLOW IVP SCH (09:45)
[2019-09-15] MEDS: Sodium Chloride 0.9% 1,000 ML IV SCH (10:42)
[2019-09-15] MEDS: HYDROcodone/Acetaminophen 5/325 mg Tablet PO PRN ×2 (14:03→20:22)
--- NOTE | 2019-09-15 15:06 | PDOC.HOSPP ---
- Subjective Encounter Date: 09/15/19 Encounter Time: 09:00 Subjective: no overnight events this morning feeling well, more alert, no complaints. - Objective Vital Signs & Weight: Vital Signs (12 hours) Temp Pulse Resp BP Pulse Ox 09/15/19 12:35 156/70 H 09/15/19 12:34 165/79 H 09/15/19 08:35 95 09/15/19 08:30 98.8 F 87 18 172/83 H 98 09/15/19 04:00 98.0 F 91 18 171/73 H 97 Weight Weight 162 lb 14.4 oz I&O: 09/14/19 09/15/19 09/16/19 06:59 06:59 06:59 Intake Total 550 Output Total 1150 Balance -600 Result Diagrams: 09/14/19 15:00 09/15/19 05:52 Additional Labs: Accuchecks 09/15/19 09/15/19 09/14/19 11:04 06:10 22:10 POC Glucose 216 H 167 H 243 H Hospitalist ROS - Review of Systems Constitutional: denies: fever, chills, sweats, weakness, malaise, other Respiratory: reports: cough (improved), dry. denies: shortness of breath, hemoptysis, SOB with excertion, pleuritic pain Cardiovascular: denies: chest pain, palpitations, orthopnea, paroxysmal noc. dyspnea Gastrointestinal: denies: nausea, vomiting, abdominal pain, diarrhea - Medication Medications: Active Medications Generic Name Dose Route Start Last Admin Trade Name Freq PRN Reason Stop Dose Admin Hydrocodone Bitart/Acetaminophen 1 tab 09/15/19 13:04 09/15/19 14:03 Mcdowell 5/325 PO 1 tab Q4H PRN Administration Moderate to Severe Pain (6-10) Enoxaparin Sodium 30 mg 09/15/19 09:00 09/15/19 08:28 Lovenox SC 30 mg 0900 ARCADIO Administration Azithromycin 500 mg/ Sodium 250 mls @ 250 mls/hr 09/14/19 22:00 09/14/19 22: 00 Chloride IVPB 250 mls 2200 ARCADIO Administration Ceftriaxone Sodium 1 gm/ 100 mls @ 200 mls/hr 09/14/19 23:00 09/14/19 23:20 Sodium Chloride IVPB 100 mls 2300 ARCADIO Administration Sodium Chloride 1,000 mls @ 75 mls/hr 09/15/19 09:45 09/15/19 10:42 Normal Saline 0.9% IV 1,000 mls .[id number] ARCADIO Administration Insulin Human Lispro 0 units 09/14/19 21:38 09/15/19 10:55 Humalog SC 3 unit .MILD SLIDING SCALE PRN Administration Mild Correctional Scale Senna/Docusate Sodium 2 tab 09/14/19 21:00 09/15/19 09:29 Senokot S PO Not Given BID ARCADIO - Exam General Appearance: NAD, awake alert Neck: no JVD Heart: RRR, no murmur, no gallops, no rubs Respiratory: CTAB, no wheezes, no rales, no ronchi Gastrointestinal: soft, non-tender, non-distended Extremities: no edema Psychiatric: normal affect, normal behavior, oriented to person, oriented to place. negative: oriented to time Hosp A/P (1) Pneumonia due to COVID-19 virus Code(s): U07.1 - COVID-19; J12.89 - OTHER VIRAL PNEUMONIA Status: Acute (2) Chronic hyponatremia Code(s): E87.1 - HYPO-OSMOLALITY AND HYPONATREMIA Status: Acute (3) Urinary retention Code(s): R33.9 - RETENTION OF URINE, UNSPECIFIED Status: Acute (4) Cardiomyopathy Code(s): I42.9 - CARDIOMYOPATHY, UNSPECIFIED Status: Acute (5) Hypertension Code(s): I10 - ESSENTIAL (PRIMARY) HYPERTENSION Status: Acute - Plan #covid pneumonia -elevated inflammatory markers -cough improved; patient educated regarding possibility of persistent cough -hypoxic so started decadron #UTI -no associated symptoms but poor historian -continue ABx for now #urinary retention -adjusted medication -marks trial #T2DM poorly controlled; will adjust insulin regimen
[2019-09-15] MEDS ORDERED: Losartan 25 MG TAB PO SCH (17:45)
[2019-09-15] MEDS ORDERED: Insulin Glargine 10 UNITS in Pre-Filled Syringe 1 EACH SC SCH (21:00)
[2019-09-15] MEDS ORDERED: Rosuvastatin 20 MG TAB PO SCH (21:00)
[2019-09-15] MEDS ORDERED: Levothyroxine Sodium 50 MCG TAB PO SCH (21:00)
[2019-09-15] MEDS ORDERED: hydrALAZINE 20 MG/ML VIAL SLOW IVP SCH (21:45)
[2019-09-15] MEDS: Azithromycin 500 MG in Sodium Chloride 0.9% 250 ML 250 ML IVPB SCH (22:39)
[2019-09-15] MEDS: cefTRIAXone\\ROCEPHIN 1 GM in Sodium Chloride 0.9% 100 ML IVPB SCH (22:40)
[2019-09-16] MEDS: Sodium Chloride 0.9% 1,000 ML IV SCH ×2 (00:30→13:38)
[2019-09-16] MEDS: HumaLOG 300 UNITS/3 ML VIAL SC PRN ×2 (04:21→17:19)
[2019-09-16] MEDS: HYDROcodone/Acetaminophen 5/325 mg Tablet PO PRN ×2 (04:37→08:47)
[2019-09-16 06:13] LABS: Anion Gap 13 mmol/L (10-20); BUN (Urea Nitrogen) 11 mg/dL (9.8-20.1); Calc. Creatinine Clearance 67 mL/min (70-130); Calcium 8.6 mg/dL (7.8-10.44); Carbon Dioxide 17 mmol/L (23-31); Chloride 103 mmol/L (98-107); Estimated GFR-MDRD 70; Glucose 330 mg/dL (83-110); Magnesium 1.4 mg/dL (1.6-2.6); Potassium 3.3 mmol/L (3.5-5.1); Sodium 130 mmol/L (136-145)
[2019-09-16] MEDS: Enoxaparin Sodium 30 MG/0.3 ML SYRINGE SC SCH (08:47)
[2019-09-16] MEDS: Senokot S 8.6-50 MG TAB PO SCH (08:53)
[2019-09-16] MEDS ORDERED: Aspirin 81 mg Enteric Coated Tablet PO SCH (09:00)
[2019-09-16] MEDS ORDERED: Dexamethasone 4 mg/ml Vial SLOW IVP SCH (09:00)
[2019-09-16] MEDS ORDERED: Losartan 25 MG TAB PO SCH ×3 (09:00→14:30)
[2019-09-16] MEDS ORDERED: Methotrexate Sodium 2.5 MG TAB PO SCH (09:00)
[2019-09-16] MEDS ORDERED: Folic Acid 1 MG TAB PO SCH (09:00)
[2019-09-16] MEDS ORDERED: Potassium Chloride 20 MEQ TAB PO SCH (12:17)
[2019-09-16] MEDS ORDERED: Insulin Regular 300 UNITS/3 ML VIAL SC SCH (12:45)
[2019-09-16] MEDS ORDERED: Amlodipine 5 MG TAB PO SCH (14:30)
[2019-09-16 16:51] VITALS: BP 164/91
[2019-09-16 18:46] VITALS: TEMP 97.9
--- NOTE | 2019-09-17 06:17 | DIS ---
DATE OF ADMISSION: 09/14/2019 DATE OF DISCHARGE: 09/16/2019 HOSPITAL COURSE: Ms. Rosado is a 79-year-old female with a medical history of hypertension, type 2 diabetes, and recently diagnosed COVID-19 pneumonia (September 04), who presented for recurrent coughing and drowsiness. The patient was started on treatment for COVID pneumonia including dexamethasone and antibiotics. She initially required 2 L of oxygen via nasal cannula, but on the day of discharge, did not require any oxygen and her cough significantly improved. In addition to that, the patient had urinary retention on presentation. Medications with anticholinergic activity were discontinued, and the Cutler was removed. She passed Cutler trial and continued to have PVRs of less than 200 after removal of the Cutler. Her diabetes and hypertension were poorly controlled. Insulin regimen was adjusted as well as antihypertensive medications. The patient and her daughter were notified to follow up with her primary care physician in order to resume management of her chronic medical conditions. PHYSICAL EXAMINATION: VITAL SIGNS: Blood pressure 177/77, temperature 97.6, pulse 88, respiratory rate 18, and oxygen saturation 98% on 1 L nasal cannula. GENERAL: Lying comfortably in bed, alert. Morbidly obese. NECK: No JVD. HEART: Regular rate and rhythm. No murmurs, gallops, or rubs. LUNGS: Clear to auscultation bilaterally. No wheezing, rales, or rhonchi. No tachypnea. GI: Soft, nontender, nondistended. EXTREMITIES: No edema. PSYCHIATRIC: Proper mood and affect. Oriented to self and place, but not to time, which per the daughter is baseline. MEDICATION LIST: New medications: 1. Amlodipine 5 mg daily. 2. Dexamethasone 6 mg daily for 5 more days. 3. Magnesium oxide 400 mg daily. 4. Potassium chloride 20 mEq daily. Modified medications: Losartan was increased from 50 mg daily to 100 mg daily. Remaining medications were unchanged. The patient and daughter were requested to follow up with the patient's primary care physician within 7 days. Job ID: [id number]
[2019-09-17] MEDS ORDERED: Losartan 25 MG TAB PO SCH (09:00)
[2019-09-17] MEDS ORDERED: Magnesium Oxide 400 MG TAB PO SCH (09:00)
[2019-09-17] MEDS ORDERED: Amlodipine 5 MG TAB PO SCH (09:00)
--- NOTE | 2019-09-21 17:24 | EKG ---
Test Reason : Blood Pressure : / mmHG Vent. Rate : 111 BPM Atrial Rate : 111 BPM P-R Int : 188 ms QRS Dur : 074 ms QT Int : 306 ms P-R-T Axes : 091 -12 026 degrees QTc Int : 416 ms Sinus tachycardia Minimal voltage criteria for LVH, may be normal variant Inferior infarct , age undetermined Abnormal ECG Confirmed by SHI WILBURN M.D. ([id number]), online editor KELI JESUS ([id number]) on 09/21/2019 5:24:29 PM Referred By: Confirmed By:SHI WILBURN M.D.
== END 2019-09-16 17:48 | disposition home or self-care (01) | DRG 177 ==
LOC: ERS 13:59 → T4-A 17:29
PROVIDERS: ADMIT Internal Medicine; ATTEND Internal Medicine
PROC: 8E0ZXY6 Isolation (ICD-10-PCS; principal; 2019-09-14)
PROC: 0T9B70Z Drainage of Bladder with Drainage Device, Via Natural or Artificial Opening (ICD-10-PCS; 2019-09-14)
DX: U07.1 COVID-19 (principal); J12.89 Other viral pneumonia; E87.1 Hypo-osmolality and hyponatremia; N17.9 Acute kidney failure, unspecified; N39.0 Urinary tract infection, site not specified; I42.9 Cardiomyopathy, unspecified; R40.2232 Coma scale, best verbal response, inappropriate words, at arrival to emergency department; R40.2352 Coma scale, best motor response, localizes pain, at arrival to emergency department; R40.2142 Coma scale, eyes open, spontaneous, at arrival to emergency department; M19.90 Unspecified osteoarthritis, unspecified site; E78.5 Hyperlipidemia, unspecified; F41.9 Anxiety disorder, unspecified; R09.02 Hypoxemia; E86.0 Dehydration; E66.01 Morbid (severe) obesity due to excess calories; R33.9 Retention of urine, unspecified; E11.65 Type 2 diabetes mellitus with hyperglycemia; Z90.49 Acquired absence of other specified parts of digestive tract; Z98.51 Tubal ligation status; Z79.4 Long term (current) use of insulin; Z79.890 Hormone replacement therapy; Z79.899 Other long term (current) drug therapy; Z88.0 Allergy status to penicillin; Z68.29 Body mass index [BMI] 29.0-29.9, adult
CPT/HCPCS: 36415; 36416; 51702; 70450; 71045; 80048; 80053; 81003; 81015; 82330; 82553; 82728; 82803; 83735; 84145; 84484; 85025; 85379; 86140; 87086; 93005; 96360; 96361; J0360; J0456; J0696; J1100; J1650; J1815; J3490; J7050